=== PATIENT | female | born 1940 | race American Indian/Alaskan Native ===

== ENCOUNTER 2017-09-25 13:31 | Inpatient (IN) | payer MEDICARE, MEDICAID, OTHER ==
[2017-09-25] MEDS ORDERED: Magnesium Hydroxide 400 MG/5 ML Susp 30 ML Cup PO PRN (15:15)
[2017-09-25] MEDS ORDERED: Morphine 2 MG/ML Syringe IVPUSH PRN (15:15)
[2017-09-25] MEDS ORDERED: Polyethylene Glycol 3350 Powder 17 GM Packet PO PRN (15:15)
[2017-09-25] MEDS ORDERED: Ondansetron 4 MG Tab.DIS PO PRN (15:18)
[2017-09-25] MEDS ORDERED: Acetaminophen/oxyCODONE 325-5 MG Tab PO PRN (15:20)
[2017-09-25] MEDS: ceFAZolin 2 GM in Premix Bag 1 BAG IV SCH ×2 (16:18→22:24)
[2017-09-25] MEDS: Rifampin 150 MG Cap PO SCH (16:19)
[2017-09-25] MEDS: Sodium Chloride 0.9% 10 ML Syringe FLUSH PRN ×3 (16:19→22:59)
[2017-09-25] MEDS: Acetaminophen 325 MG Tab PO PRN (16:23)
--- NOTE | 2017-09-25 17:11 | HP ---
CHIEF COMPLAINT: Infected right hip arthroplasty, status post surgery, requiring long-term IV antibiotics for almost 6 weeks, requiring admission to Swing Bed. HISTORY OF PRESENTING ILLNESS: Ms. Miri Mercado is a 76-year-old female with medical history significant for hypertension and osteoarthritis. She had the left hip arthroplasty in the past and then she had the right total hip arthroplasty on 09/04/2017. She was admitted to [facility] on 09/19/2017 with right septic total hip arthroplasty and underwent excisional irrigation and debridement of the right hip with revision of the right total hip head and poly exchange on 09/20/2017. The patient had Staph aureus growing in the culture which is methicillin-susceptible. The patient was evaluated by Infectious Disease team at [facility] and has suggested for cefazolin for a total of 6 weeks of IV antibiotics which will be up until 11/01/2017, requiring admission to Swing Bed. At this time, the patient complains of pain to the right hip site. She grades the pain as 3-4/10 in intensity, which is dull in nature, aggravated on ambulation, relieved with rest and pain medication, nonradiating type of pain, not associated with any nausea or vomiting. Denies any chest pain. No shortness of breath. No abdominal pain. The patient denied any history of chest pains on exertion. No history of dyspnea on exertion. No history of orthopnea or paroxysmal nocturnal dyspnea. The patient denied any history of hematemesis, hematochezia, or melenic stools. Normal bowel and bladder habits, otherwise. REVIEW OF SYSTEMS: A complete review of systems including skin, ear, nose, and throat, cardiovascular system, respiratory system, gastrointestinal system, genitourinary system, hematology, oncology, neurology, constitutional were all evaluated and were negative except for the above-said notes. PAST MEDICAL HISTORY: Significant for: 1. Hypertension. 2. Osteoarthritis. 3. Septic right total hip arthroplasty. PAST SURGICAL HISTORY: Significant for: 1. Left total hip arthroplasty. 2. Laparoscopic cholecystectomy. 3. Recent right total hip arthroplasty, which got complicated with infection, requiring excisional irrigation and debridement of the right hip with revision of the total right hip head with poly exchange on 09/20/2017. FAMILY HISTORY: Unknown by the patient. SOCIAL HISTORY: The patient denied any history of smoking tobacco. No history of alcohol intake. ALLERGIES: The patient has intolerance to lisinopril, which causes her to cough. MEDICATIONS: Home medications to include: 1. Tylenol 650 daily as needed for pain. 2. Senokot 2 tablet daily. 3. Rifampin 300 mg twice a day. 4. Potassium chloride 20 mEq daily. 5. Oxycodone 5 mg every 4 hours. 6. Zofran as needed. 7. Multivitamin 1 tablet daily. 8. Cozaar 50 mg daily. 9. Ferrous sulfate 1 tablet oral daily. 10.Lipitor 10 mg at bedtime. 11.Aspirin 325 mg twice a day. 12.Norvasc 10 mg daily. PHYSICAL EXAMINATION: Vital Signs: Temperature of 98.1, pulse of 118, blood pressure 129/82, respiratory rate of 20, saturating at 93% on room air. General Appearance: The patient is well oriented to time, place, and person. Follows commands spontaneously. Cardiovascular System: S1 and S2 heard with normal intensity. No gallops. Respiratory System: Clear to auscultation bilaterally. No wheeze. No crepitations. Abdomen: Soft. Bowel sounds positive. Nontender. No rigidity. Extremities: Wound VAC noted to the right hip. No swelling. No erythema noted. Well healing wounds noted. No edema to the lower extremities. Neurologic: No gross focal neurological deficits. LABORATORY DATA: Labs as obtained from [facility]: Sodium 137, potassium 4.4, chloride 104, bicarb 27, BUN 5, creatinine 0.6, magnesium 1.9. WBC 6.3, hemoglobin 8.3, hematocrit 26.8, platelet count 408. ASSESSMENT: 1. 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 2. Status post right total hip arthroplasty on 09/04/2017, complicated with infection, requiring excisional irrigation and debridement of the right hip with revision of her prior right total hip with poly exchange on 09/20/2017. 3. Status post wound VAC placement. 4. Hypertension. 5. Osteoarthritis. PLAN: 1. 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 Continue the same. The patient will need IV cefazolin and oral rifampin for a total duration of 6 weeks as recommended by the Infectious Disease team, which will be up until 11/01/2017. She will be following with Infectious Disease weekly for further recommendation on IV antibiotics. We will continue the wound VAC. Recommendation is to leave the wound VAC for next one week until she has an upcoming appointment. We will closely follow. 2. Hypertension: She is noted to be on Cozaar. Continue the same. Try to avoid any hypotensive episodes. 3. DVT prophylaxis: Orthopedic is recommended for aspirin for DVT prophylaxis. Not had any heparin or Lovenox secondary to complications with bleeding and recurrent infections. We will continue with the aspirin for now, defer DVT prophylaxis. We will also encourage the patient to ambulate and have her on DIO hose as a DVT prophylaxis. 4. Code status: The patient wants to be full code. 5. Reviewed the labs and medications. Reviewed the charts obtained from [facility]. [facility] /[id number]
[2017-09-25] MEDS: oxyCODONE 5 MG Tab PO SCH ×2 (18:17→22:25)
[2017-09-25] MEDS: Aspirin 325 MG Tab.EC PO SCH (20:11)
[2017-09-25] MEDS: Potassium Chloride 10 MEQ Tab.ER PO SCH (20:11)
[2017-09-25] MEDS: Clotrimazole 1% Crm 30 GM Tube TOP SCH (20:11)
[2017-09-25] MEDS: atorvaSTATin 10 MG Tab PO SCH (20:11)
[2017-09-26] MEDS: oxyCODONE 5 MG Tab PO SCH ×6 (01:54→21:36)
[2017-09-26] MEDS: Sodium Chloride 0.9% 10 ML Syringe FLUSH PRN ×3 (05:43→21:36)
[2017-09-26] MEDS: ceFAZolin 2 GM in Premix Bag 1 BAG IV SCH ×3 (05:52→21:36)
[2017-09-26] MEDS: Rifampin 150 MG Cap PO SCH ×2 (05:53→16:48)
[2017-09-26] MEDS: Aspirin 325 MG Tab.EC PO SCH ×2 (08:55→21:36)
[2017-09-26] MEDS: Potassium Chloride 10 MEQ Tab.ER PO SCH ×2 (08:55→21:36)
[2017-09-26] MEDS: Ferrous Sulfate 325 MG Tab PO SCH (08:56)
[2017-09-26] MEDS: Clotrimazole 1% Crm 30 GM Tube TOP SCH ×2 (08:56→21:37)
[2017-09-26] MEDS: Losartan 50 MG Tab PO SCH (08:56)
[2017-09-26] MEDS: amLODIPine 5 MG Tab PO SCH (08:56)
[2017-09-26] MEDS: Multivitamins, Therapeutic with Minerals Tab PO SCH (08:56)
[2017-09-26] MEDS ORDERED: FERROUS SULFATE PO SCH (09:00)
[2017-09-26] MEDS: atorvaSTATin 10 MG Tab PO SCH (21:36)
[2017-09-27] MEDS: oxyCODONE 5 MG Tab PO SCH ×6 (01:49→22:10)
[2017-09-27] MEDS: ceFAZolin 2 GM in Premix Bag 1 BAG IV SCH ×3 (05:56→22:12)
[2017-09-27] MEDS: Sodium Chloride 0.9% 10 ML Syringe FLUSH PRN ×2 (05:57→13:43)
[2017-09-27] MEDS: Rifampin 150 MG Cap PO SCH ×2 (06:01→18:02)
[2017-09-27] MEDS: Potassium Chloride 10 MEQ Tab.ER PO SCH ×2 (08:25→20:36)
[2017-09-27] MEDS: Multivitamins, Therapeutic with Minerals Tab PO SCH (08:26)
[2017-09-27] MEDS: Ferrous Sulfate 325 MG Tab PO SCH (08:26)
[2017-09-27] MEDS: Losartan 50 MG Tab PO SCH (08:41)
[2017-09-27] MEDS: Aspirin 325 MG Tab.EC PO SCH ×2 (08:41→20:36)
[2017-09-27] MEDS: amLODIPine 5 MG Tab PO SCH (08:42)
[2017-09-27] MEDS: Clotrimazole 1% Crm 30 GM Tube TOP SCH ×2 (08:42→20:40)
[2017-09-27] MEDS: atorvaSTATin 10 MG Tab PO SCH (20:37)
[2017-09-28] MEDS: oxyCODONE 5 MG Tab PO SCH ×6 (02:01→22:03)
[2017-09-28] MEDS: ceFAZolin 2 GM in Premix Bag 1 BAG IV SCH ×3 (05:58→22:05)
[2017-09-28] MEDS: Rifampin 150 MG Cap PO SCH ×2 (06:04→17:55)
[2017-09-28] MEDS: Ferrous Sulfate 325 MG Tab PO SCH (09:59)
[2017-09-28] MEDS: Aspirin 325 MG Tab.EC PO SCH ×2 (09:59→20:23)
[2017-09-28] MEDS: Potassium Chloride 10 MEQ Tab.ER PO SCH ×2 (09:59→20:23)
[2017-09-28] MEDS: amLODIPine 5 MG Tab PO SCH (09:59)
[2017-09-28] MEDS: Multivitamins, Therapeutic with Minerals Tab PO SCH (09:59)
[2017-09-28] MEDS: Losartan 50 MG Tab PO SCH (09:59)
[2017-09-28] MEDS: Clotrimazole 1% Crm 30 GM Tube TOP SCH ×2 (10:00→20:24)
[2017-09-28] MEDS: atorvaSTATin 10 MG Tab PO SCH (20:24)
[2017-09-29] MEDS: oxyCODONE 5 MG Tab PO SCH ×6 (02:02→21:53)
[2017-09-29] MEDS: Rifampin 150 MG Cap PO SCH ×2 (05:54→18:05)
[2017-09-29] MEDS: ceFAZolin 2 GM in Premix Bag 1 BAG IV SCH ×3 (05:55→21:54)
[2017-09-29] MEDS: Potassium Chloride 10 MEQ Tab.ER PO SCH ×2 (09:38→20:20)
[2017-09-29] MEDS: Multivitamins, Therapeutic with Minerals Tab PO SCH (09:38)
[2017-09-29] MEDS: amLODIPine 5 MG Tab PO SCH (09:38)
[2017-09-29] MEDS: Ferrous Sulfate 325 MG Tab PO SCH (09:39)
[2017-09-29] MEDS: Losartan 50 MG Tab PO SCH (09:39)
[2017-09-29] MEDS: Aspirin 325 MG Tab.EC PO SCH ×2 (09:39→20:20)
[2017-09-29] MEDS: Clotrimazole 1% Crm 30 GM Tube TOP SCH ×2 (09:39→20:21)
[2017-09-29] MEDS: atorvaSTATin 10 MG Tab PO SCH (20:20)
[2017-09-30] MEDS: oxyCODONE 5 MG Tab PO SCH ×6 (02:00→21:49)
[2017-09-30] MEDS: Rifampin 150 MG Cap PO SCH ×2 (05:57→16:15)
[2017-09-30] MEDS: ceFAZolin 2 GM in Premix Bag 1 BAG IV SCH ×3 (05:59→22:00)
[2017-09-30] MEDS: Losartan 50 MG Tab PO SCH (09:00)
[2017-09-30] MEDS: Potassium Chloride 10 MEQ Tab.ER PO SCH ×2 (09:12→21:48)
[2017-09-30] MEDS: amLODIPine 5 MG Tab PO SCH (09:13)
[2017-09-30] MEDS: Ferrous Sulfate 325 MG Tab PO SCH (09:13)
[2017-09-30] MEDS: Multivitamins, Therapeutic with Minerals Tab PO SCH (09:14)
[2017-09-30] MEDS: Aspirin 325 MG Tab.EC PO SCH ×2 (09:14→21:47)
[2017-09-30] MEDS: Clotrimazole 1% Crm 30 GM Tube TOP SCH ×2 (09:16→21:49)
[2017-09-30] MEDS: atorvaSTATin 10 MG Tab PO SCH (21:47)
[2017-09-30] MEDS: Sodium Chloride 0.9% 10 ML Syringe FLUSH PRN ×2 (21:57→22:29)
[2017-10-01] MEDS: oxyCODONE 5 MG Tab PO SCH ×6 (02:10→22:29)
[2017-10-01] MEDS: Sodium Chloride 0.9% 10 ML Syringe FLUSH PRN ×2 (05:19→06:07)
[2017-10-01] MEDS: ceFAZolin 2 GM in Premix Bag 1 BAG IV SCH ×3 (05:21→22:29)
[2017-10-01] MEDS: Rifampin 150 MG Cap PO SCH ×2 (05:22→17:43)
[2017-10-01] MEDS: amLODIPine 5 MG Tab PO SCH (07:59)
[2017-10-01] MEDS: Aspirin 325 MG Tab.EC PO SCH ×2 (07:59→21:05)
[2017-10-01] MEDS: Ferrous Sulfate 325 MG Tab PO SCH (07:59)
[2017-10-01] MEDS: Multivitamins, Therapeutic with Minerals Tab PO SCH (08:00)
[2017-10-01] MEDS: Potassium Chloride 10 MEQ Tab.ER PO SCH ×2 (08:00→21:05)
[2017-10-01] MEDS: Losartan 50 MG Tab PO SCH (08:00)
[2017-10-01] MEDS: Clotrimazole 1% Crm 30 GM Tube TOP SCH ×2 (08:01→21:08)
--- NOTE | 2017-10-01 10:33 | PCM.PN ---
- General Info Date of Service: 10/01/17 Subjective Update: Patient is 76 y/o F with PMH of HTN, OA, s/p left RADHA in the past. She uderwent right RADHA on 09/04. She was admitted to [facility] on 09/19 with right septic total hip arthropalsty and underwent excisional irrigation and debridement. Cx positive for MSSA. She was admitted to [facility] bed to continue IV cefazolin. Plan is to complete 6 week course on 11/01. Today patient reports no complaints. Reports doing well. Functional Status: Reports: Pain Controlled - Review of Systems General: Reports: No Symptoms HEENT: Reports: No Symptoms Pulmonary: Reports: No Symptoms Cardiovascular: Reports: No Symptoms Gastrointestinal: Reports: No Symptoms Genitourinary: Reports: No Symptoms Musculoskeletal: Reports: No Symptoms Skin: Reports: No Symptoms Neurological: Reports: No Symptoms Psychiatric: Reports: No Symptoms - Patient Data Vitals - Most Recent: Last Vital Signs Temp 98.0 F 10/01/17 07:32 Pulse 104 H 10/01/17 07:32 Resp 20 10/01/17 07:32 BP 111/68 10/01/17 08:00 Pulse Ox 94 L 10/01/17 07:32 Weight - Most Recent: 205 lb I&O - Last 24 Hours: Intake & Output 09/30/17 10/01/17 10/01/17 22:59 06:59 14:59 Intake Total 459 665 325 Balance 459 665 325 Med Orders - Current: Current Medications Acetaminophen (Tylenol) 650 mg PO DAILY PRN PRN Reason: Pain Last Admin: 09/25/17 16:23 Dose: 650 mg Amlodipine Besylate (Norvasc) 10 mg PO DAILY [facility] Last Admin: 10/01/17 07:59 Dose: 10 mg Aspirin (Ecotrin) 325 mg PO BID [facility] Last Admin: 10/01/17 07:59 Dose: 325 mg Atorvastatin Calcium (Lipitor) 10 mg PO BEDTIME [facility] Last Admin: 09/30/17 21:47 Dose: 10 mg Clotrimazole (Lotrimin Af 1% Crm) 0 gm TOP BID [facility] Last Admin: 10/01/17 08:01 Dose: Not Given Ferrous Sulfate (Ferrous Sulfate) 325 mg PO DAILY [facility] Last Admin: 10/01/17 07:59 Dose: 325 mg Cefazolin Sodium/Dextrose 2 gm (/ Premix) 50 mls @ 100 mls/hr IV Q8HR [facility] Last Infusion: 10/01/17 06:06 Dose: Infused Losartan Potassium (Cozaar) 50 mg PO DAILY [facility] Last Admin: 10/01/17 08:00 Dose: 50 mg Magnesium Hydroxide (Milk Of Magnesia) 30 ml PO Q12H PRN PRN Reason: Constipation Morphine Sulfate (Morphine) 2 mg IVPUSH Q2H PRN PRN Reason: Pain (severe 7-10) Multivitamins/Minerals (Vitamins And Minerals) 1 tab PO DAILY [facility] Last Admin: 10/01/17 08:00 Dose: 1 tab Ondansetron HCl (Zofran Odt) 8 mg PO Q8HR PRN PRN Reason: Nausea Oxycodone HCl (Oxycodone) 5 mg PO Q4HR [facility] Last Admin: 10/01/17 05:23 Dose: 5 mg Oxycodone/Acetaminophen (Percocet 325-5 Mg) 1 tab PO Q4H PRN PRN Reason: Pain (moderate 4-6) Polyethylene Glycol (Miralax) 17 gm PO DAILY PRN PRN Reason: Constipation Potassium Chloride (Klor-Con 10) 20 meq PO BID [facility] Last Admin: 10/01/17 08:00 Dose: 20 meq [facility] Last Admin: 10/01/17 05:22 Dose: 300 mg Senna/Docusate Sodium (Senna Plus) 2 tab PO DAILY [facility] Last Admin: 10/01/17 07:59 Dose: 2 tab Sodium Chloride (Saline Flush) 10 ml FLUSH ASDIRECTED PRN PRN Reason: IV Use Last Admin: 10/01/17 06:07 Dose: 10 ml Temazepam (Restoril) 15 mg PO BEDTIME PRN PRN Reason: Sleep Discontinued Medications Non-Formulary Medication (Ferrous Sulfate) 1 tab PO DAILY [facility] - Exam General: Alert, Oriented HEENT: Pupils Equal, Pupils Reactive, EOMI, Mucous Membr. Moist/[place] Neck: Supple Lungs: Clear to Auscultation, Normal Respiratory Effort Cardiovascular: Regular Rate, Regular Rhythm GI/Abdominal Exam: Normal Bowel Sounds, Soft, Non-Tender, No Organomegaly, No Distention, No Abnormal Bruit, No Mass, Pelvis Stable (Female) Exam: Normal External Exam, Normal Speculum Exam, Normal Bimanual Exam Back Exam: Normal Inspection, Full Range of Motion Extremities: Normal Inspection, Normal Range of Motion, Non-Tender, No Pedal Edema, Normal Capillary Refill Skin: Warm, Dry, Intact Wound/Incisions: Healing Well Neurological: No New Focal Deficit Psy/Mental Status: Alert, Normal Affect, Normal Mood - Problem List Review Problem List Initiated/Reviewed/Updated: Yes - Plan Plan:: Septic Right total hip arthropalsty s/p excisional irrigation and debridement -Cx positive for MSSA -continue IV cefazolin. Plan is to complete 6 week course on 11/01 Osteoarthritis -Tyleron prn HTN -BP with limits -continue current care Full code
[2017-10-01] MEDS: atorvaSTATin 10 MG Tab PO SCH (21:05)
[2017-10-02] MEDS: oxyCODONE 5 MG Tab PO SCH ×4 (02:01→21:39)
[2017-10-02] MEDS: ceFAZolin 2 GM in Premix Bag 1 BAG IV SCH ×3 (05:57→21:40)
[2017-10-02] MEDS: Rifampin 150 MG Cap PO SCH ×2 (05:58→17:12)
[2017-10-02 06:57] LABS: ANION GAP 12.4; CHLORIDE,CL 100 mmol/L (101-111); SODIUM,NA 134 mmol/L (135-145)
[2017-10-02] MEDS: Losartan 50 MG Tab PO SCH (09:30)
[2017-10-02] MEDS: Potassium Chloride 10 MEQ Tab.ER PO SCH ×2 (10:27→21:37)
[2017-10-02] MEDS: Multivitamins, Therapeutic with Minerals Tab PO SCH (10:27)
[2017-10-02] MEDS: Ferrous Sulfate 325 MG Tab PO SCH (10:27)
[2017-10-02] MEDS: Aspirin 325 MG Tab.EC PO SCH ×2 (10:28→21:38)
[2017-10-02] MEDS: amLODIPine 5 MG Tab PO SCH (10:29)
[2017-10-02] MEDS: Clotrimazole 1% Crm 30 GM Tube TOP SCH ×2 (10:31→21:38)
[2017-10-02] MEDS ORDERED: Acetaminophen/oxyCODONE 325-5 MG Tab PO PRN (10:32)
[2017-10-02] MEDS ORDERED: oxyCODONE 5 MG Tab PO PRN (10:32)
[2017-10-02] MEDS: Sodium Chloride 0.9% 10 ML Syringe FLUSH PRN (14:54)
[2017-10-02] MEDS: atorvaSTATin 10 MG Tab PO SCH (21:38)
[2017-10-03] MEDS: Rifampin 150 MG Cap PO SCH ×2 (05:51→16:59)
[2017-10-03] MEDS: ceFAZolin 2 GM in Premix Bag 1 BAG IV SCH ×3 (05:51→21:24)
[2017-10-03] MEDS: amLODIPine 5 MG Tab PO SCH (08:32)
[2017-10-03] MEDS: Aspirin 325 MG Tab.EC PO SCH ×2 (08:33→21:21)
[2017-10-03] MEDS: Ferrous Sulfate 325 MG Tab PO SCH (08:33)
[2017-10-03] MEDS: Losartan 50 MG Tab PO SCH (08:34)
[2017-10-03] MEDS: Multivitamins, Therapeutic with Minerals Tab PO SCH (08:34)
[2017-10-03] MEDS: Potassium Chloride 10 MEQ Tab.ER PO SCH ×2 (08:34→21:21)
[2017-10-03] MEDS: oxyCODONE 5 MG Tab PO SCH ×2 (08:34→21:21)
[2017-10-03] MEDS: Clotrimazole 1% Crm 30 GM Tube TOP SCH ×2 (08:35→21:24)
[2017-10-03] MEDS: Acetaminophen 325 MG Tab PO PRN (09:42)
[2017-10-03] MEDS: Sodium Chloride 0.9% 10 ML Syringe FLUSH PRN (13:49)
[2017-10-03] MEDS: atorvaSTATin 10 MG Tab PO SCH (21:21)
[2017-10-03] MEDS: Menthol/Methyl Salicylate 85 GM Tube TOP PRN (21:23)
[2017-10-04] MEDS: ceFAZolin 2 GM in Premix Bag 1 BAG IV SCH ×3 (05:37→22:09)
[2017-10-04] MEDS: Rifampin 150 MG Cap PO SCH ×2 (05:37→16:46)
[2017-10-04] MEDS: Potassium Chloride 10 MEQ Tab.ER PO SCH ×2 (09:04→21:54)
[2017-10-04] MEDS: amLODIPine 5 MG Tab PO SCH (09:05)
[2017-10-04] MEDS: Losartan 50 MG Tab PO SCH (09:05)
[2017-10-04] MEDS: Multivitamins, Therapeutic with Minerals Tab PO SCH (09:05)
[2017-10-04] MEDS: Aspirin 325 MG Tab.EC PO SCH ×2 (09:05→21:54)
[2017-10-04] MEDS: Ferrous Sulfate 325 MG Tab PO SCH (09:05)
[2017-10-04] MEDS: oxyCODONE 5 MG Tab PO SCH ×2 (09:06→21:54)
[2017-10-04] MEDS: Clotrimazole 1% Crm 30 GM Tube TOP SCH ×2 (09:09→21:55)
[2017-10-04] MEDS: Menthol/Methyl Salicylate 85 GM Tube TOP PRN (09:17)
[2017-10-04 12:12] LABS: ANION GAP 13.1; CHLORIDE,CL 97 mmol/L (101-111); SODIUM,NA 132 mmol/L (135-145)
--- NOTE | 2017-10-04 12:14 | PN ---
DATE: 10/04/2017 SUBJECTIVE: Mrs. Miri Mercado is a 76-year-old female with medical history significant for hypertension and osteoarthritis, had complications with the left hip arthroplasty and got infected; and it was noted to have septic total hip arthroplasty and underwent excisional irrigation and debridement of the right hip with revision of the right total hip and poly exchange on 09/20/2017. The patient was noted to have Staph aureus growing in the cultures which is methicillin-susceptible, and the patient is currently on IV antibiotic with cefazolin for a total of 6 weeks. For the last 24 hours, the patient noted to have excessive drainage from the surgical site which is serosanguineous and also a little pustular. The patient complains of mild pain at the surgical site which is 2 to 3/10 in intensity, which is tingling in nature, nonradiating type of pain, not associated with any nausea or vomiting. Denies any chest pain. No shortness of breath. No abdominal pain. No nausea. No vomiting. No diarrhea. The patient remains afebrile at this time. REVIEW OF SYSTEMS: Cardiovascular, respiratory, gastrointestinal, neurology, constitutional were all evaluated. PHYSICAL EXAMINATION: Vital Signs: Temperature of 98.5, pulse of 100, blood pressure of 114/73, respiratory rate of 16, and saturating at 93%. General Appearance: The patient is well oriented to time, place, and person. Follows commands spontaneously. Cardiovascular System: S1 and S2 heard with normal intensity. No gallops. Respiratory System: Clear to auscultation bilaterally. No wheeze. No crepitations. Abdomen: Soft. Bowel sounds positive. Nontender. No rigidity. Extremities: No edema in bilateral lower extremities. Pelvic: Right hip surgical wound noted. Mild serosanguineous discharge noted from the surgical wound site. Mild open wound noted on the lower surgical scar. No erythema noted. No point tenderness noted at the surgical site. No swelling noted at the surgical site. MEDICATIONS: Reviewed. Continue with: 1. Tylenol 650 daily as needed. 2. Norvasc 10 mg daily. 3. Aspirin 325 mg twice a day. 4. Lipitor 10 mg at bedtime. 5. Cefazolin IV q.8 hourly. 6. Ferrous sulfate 325 mg daily. 7. Cozaar 50 mg daily. 8. Milk of magnesia 30 mL q.12 hourly. 9. Morphine 2 mg IV q.2 hours as needed. 10.Zofran 8 mg every 8 hours as needed for nausea. 11.Oxycodone 5 mg q.12 hourly. 12.Percocet 5/325 mg every 6 hours as needed. 13.Potassium chloride 20 mEq twice a day. 14.Rifampin 300 mg twice a day. 15.Restoril 15 mg at bedtime as needed for sleep. LABORATORY DATA: No new labs were ordered, so we will order for a CBC and a BMP for now. ASSESSMENT: 1. 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 2. Status post right total hip arthroplasty on 09/04/2017, complicated with infection, requiring excisional irrigation and debridement of the right hip with revision of her right total hip with a poly exchange on 09/20/2017. 3. Hypertension. 4. Osteoarthritis. PLAN: 1. Septic arthritis. The patient is currently on antibiotic with IV cefazolin and oral rifampin. The patient is noted to have serosanguineous discharge from the joint site, but the wound looks healthy without any erythema or swelling. Little pustular drainage also noted. The patient denies any acute pain for now. We will closely follow the patient. The patient was evaluated by Dr. Ramon last week. She has an appointment coming up on Saturday. We will closely monitor the wound. If there is any evidence of cellulitis or any worsening of the symptoms, then the patient might benefit from transferring back to [facility] in [place]. We will continue with antibiotic for now. We will recheck a CBC, ESR, and CRP at this time. We will closely follow. 2. Hypertension. The patient's blood pressure seems to be in acceptable range. Continue with Cozaar and lisinopril. 3. DVT prophylaxis. The patient is currently on aspirin twice a day for DVT prophylaxis recommended by the orthopedic team. Continue the same. [facility] /[id number]
[2017-10-04] MEDS: Sodium Chloride 0.9% 10 ML Syringe FLUSH PRN ×3 (13:55→22:47)
[2017-10-04] MEDS: atorvaSTATin 10 MG Tab PO SCH (21:54)
[2017-10-05] MEDS: Sodium Chloride 0.9% 10 ML Syringe FLUSH PRN ×4 (05:54→22:00)
[2017-10-05] MEDS: ceFAZolin 2 GM in Premix Bag 1 BAG IV SCH ×3 (05:56→22:03)
[2017-10-05] MEDS: Rifampin 150 MG Cap PO SCH ×2 (06:03→16:56)
[2017-10-05] MEDS: amLODIPine 5 MG Tab PO SCH (08:48)
[2017-10-05] MEDS: Aspirin 325 MG Tab.EC PO SCH ×2 (08:48→20:14)
[2017-10-05] MEDS: Potassium Chloride 10 MEQ Tab.ER PO SCH ×2 (08:56→20:13)
[2017-10-05] MEDS: Losartan 50 MG Tab PO SCH (08:56)
[2017-10-05] MEDS: Multivitamins, Therapeutic with Minerals Tab PO SCH (08:56)
[2017-10-05] MEDS: oxyCODONE 5 MG Tab PO SCH ×2 (08:57→20:14)
[2017-10-05] MEDS: Ferrous Sulfate 325 MG Tab PO SCH (08:57)
[2017-10-05] MEDS: Clotrimazole 1% Crm 30 GM Tube TOP SCH ×2 (10:21→20:19)
[2017-10-05] MEDS: Menthol/Methyl Salicylate 85 GM Tube TOP PRN (10:22)
[2017-10-05] MEDS: atorvaSTATin 10 MG Tab PO SCH (20:14)
[2017-10-06] MEDS: Sodium Chloride 0.9% 10 ML Syringe FLUSH PRN ×4 (05:59→22:10)
[2017-10-06] MEDS: ceFAZolin 2 GM in Premix Bag 1 BAG IV SCH ×3 (06:02→21:31)
[2017-10-06] MEDS: Rifampin 150 MG Cap PO SCH ×2 (06:03→16:38)
[2017-10-06] MEDS: Multivitamins, Therapeutic with Minerals Tab PO SCH (09:03)
[2017-10-06] MEDS: Aspirin 325 MG Tab.EC PO SCH ×2 (09:03→20:13)
[2017-10-06] MEDS: Losartan 50 MG Tab PO SCH (09:03)
[2017-10-06] MEDS: Potassium Chloride 10 MEQ Tab.ER PO SCH ×2 (09:03→20:13)
[2017-10-06] MEDS: Ferrous Sulfate 325 MG Tab PO SCH (09:03)
[2017-10-06] MEDS: oxyCODONE 5 MG Tab PO SCH ×2 (09:04→20:14)
[2017-10-06] MEDS: amLODIPine 5 MG Tab PO SCH (09:04)
[2017-10-06] MEDS: Clotrimazole 1% Crm 30 GM Tube TOP SCH ×2 (09:06→21:34)
[2017-10-06] MEDS: Menthol/Methyl Salicylate 85 GM Tube TOP PRN (09:06)
[2017-10-06] MEDS ORDERED: Iopamidol 612 MG/ML 100 ML Bottle IVPUSH ONE (15:17)
[2017-10-06] MEDS: atorvaSTATin 10 MG Tab PO SCH (20:13)
[2017-10-07] MEDS: Sodium Chloride 0.9% 10 ML Syringe FLUSH PRN ×3 (05:51→14:04)
[2017-10-07] MEDS: ceFAZolin 2 GM in Premix Bag 1 BAG IV SCH (05:54)
[2017-10-07] MEDS: Rifampin 150 MG Cap PO SCH ×2 (05:58→18:00)
[2017-10-07] MEDS: Losartan 50 MG Tab PO SCH (08:24)
[2017-10-07] MEDS: Ferrous Sulfate 325 MG Tab PO SCH (08:25)
[2017-10-07] MEDS: oxyCODONE 5 MG Tab PO SCH ×2 (08:25→21:18)
[2017-10-07] MEDS: Aspirin 325 MG Tab.EC PO SCH ×2 (08:26→21:17)
[2017-10-07] MEDS: Multivitamins, Therapeutic with Minerals Tab PO SCH (08:26)
[2017-10-07] MEDS: Potassium Chloride 10 MEQ Tab.ER PO SCH ×2 (08:26→21:17)
[2017-10-07] MEDS: amLODIPine 5 MG Tab PO SCH (08:29)
[2017-10-07] MEDS: Clotrimazole 1% Crm 30 GM Tube TOP SCH ×2 (08:30→21:19)
[2017-10-07] MEDS ORDERED: Cefepime 2 GM in Sodium Chloride 0.9% 50 ML IV SCH (12:30)
[2017-10-07] MEDS ORDERED: Cefepime 2 GM in Sodium Chloride 0.9% 100 ML IV SCH (13:14)
[2017-10-07] MEDS: Cefepime 2 GM in Sodium Chloride 0.9% 100 ML IV SCH (13:57)
[2017-10-07] MEDS: atorvaSTATin 10 MG Tab PO SCH (21:17)
[2017-10-08] MEDS: Cefepime 2 GM in Sodium Chloride 0.9% 100 ML IV SCH ×3 (01:02→18:25)
[2017-10-08] MEDS: Rifampin 150 MG Cap PO SCH ×2 (06:13→17:26)
[2017-10-08] MEDS: Losartan 50 MG Tab PO SCH (09:35)
[2017-10-08] MEDS: Multivitamins, Therapeutic with Minerals Tab PO SCH (09:35)
[2017-10-08] MEDS: amLODIPine 5 MG Tab PO SCH (09:35)
[2017-10-08] MEDS: Ferrous Sulfate 325 MG Tab PO SCH (09:36)
[2017-10-08] MEDS: Potassium Chloride 10 MEQ Tab.ER PO SCH ×2 (09:36→21:31)
[2017-10-08] MEDS: oxyCODONE 5 MG Tab PO SCH ×2 (09:36→21:32)
[2017-10-08] MEDS: Aspirin 325 MG Tab.EC PO SCH ×2 (09:36→21:31)
[2017-10-08] MEDS: Clotrimazole 1% Crm 30 GM Tube TOP SCH ×2 (09:37→21:34)
[2017-10-08] MEDS: Sodium Chloride 0.9% 10 ML Syringe FLUSH PRN (18:27)
[2017-10-08] MEDS: atorvaSTATin 10 MG Tab PO SCH (21:32)
[2017-10-09] MEDS: Cefepime 2 GM in Sodium Chloride 0.9% 100 ML IV SCH ×3 (00:05→17:10)
[2017-10-09] MEDS: Rifampin 150 MG Cap PO SCH ×2 (06:12→17:10)
[2017-10-09 06:52] LABS: ANION GAP 11.8; CHLORIDE,CL 103 mmol/L (101-111); SODIUM,NA 136 mmol/L (135-145)
[2017-10-09] MEDS: Aspirin 325 MG Tab.EC PO SCH ×2 (09:14→20:33)
[2017-10-09] MEDS: Ferrous Sulfate 325 MG Tab PO SCH (09:14)
[2017-10-09] MEDS: Losartan 50 MG Tab PO SCH (09:14)
[2017-10-09] MEDS: Potassium Chloride 10 MEQ Tab.ER PO SCH ×2 (09:14→20:33)
[2017-10-09] MEDS: Multivitamins, Therapeutic with Minerals Tab PO SCH (09:15)
[2017-10-09] MEDS: oxyCODONE 5 MG Tab PO SCH ×2 (09:15→20:34)
[2017-10-09] MEDS: amLODIPine 5 MG Tab PO SCH (09:15)
[2017-10-09] MEDS: Clotrimazole 1% Crm 30 GM Tube TOP SCH ×2 (09:16→20:36)
--- NOTE | 2017-10-09 12:46 | PN ---
DATE: 10/09/2017 SUBJECTIVE: Mrs. Miri Mercado is a 76-year-old female with a medical history significant for hypertension and osteoarthritis. She had her left hip arthroplasty on 09/04/2017 and had complications with sepsis involving the arthroplasty joint on the right hip. She was admitted to [facility] on 09/19/2017 and underwent excisional irrigation and debridement of the right hip with revision of the right total hip head and poly exchange on 09/20/2017. The patient was noted to have Staph aureus growing in the culture which was methicillin-susceptible. The patient was admitted to [facility] for continued antibiotics up until 11/01/2017 for a total of 6 weeks, but during this admission, the patient continued to have copious secretion from the wound site. Wound culture showed evidence of Pseudomonas. The patient was evaluated by Infectious Disease team and has changed the IV antibiotic cefepime and discontinued the cefazolin. For the last 24 hours, the patient continues to have mild discomfort at the wound site. She denies any chest pain. No shortness of breath. No abdominal pain. No nausea. No vomiting. No diarrhea. She continues to have mild secretion from the wound site on the right hip. REVIEW OF SYSTEMS: Cardiovascular, respiratory, gastrointestinal, neurology, constitutional were all evaluated. PHYSICAL EXAMINATION: Vital Signs: Temperature of 98.6, pulse of 117, blood pressure of 120/67, respiratory rate of 16, and saturating at 100%. General Appearance: The patient is well oriented to time, place, and person. Follows commands spontaneously. Cardiovascular System: S1 and S2 heard with normal intensity. No gallops. Respiratory System: Clear to auscultation bilaterally. No wheeze. No crepitations. Abdomen: Soft. Bowel sounds positive. Nontender. No rigidity. Extremities: No edema in bilateral lower extremities. MEDICATIONS: Medications reviewed. Continue with: 1. Tylenol 650 every 4 hours as needed for pain. 2. Norvasc 10 mg daily. 3. Aspirin 325 mg twice a day. 4. Lipitor 10 mg daily. 5. Ferrous sulfate 325 mg daily. 6. Cozaar 50 mg daily. 7. Morphine 2 mg IV q.2 hours as needed for pain. 8. Zofran 8 mg every 8 hours as needed for nausea and vomiting. 9. Oxycodone 5 mg q.12 hourly. 10.Percocet 5/325 mg every 6 hours as needed. 11.Potassium chloride 20 mEq twice a day. 12.Rifampin 300 mg twice a day. 13.Temazepam 15 mg at bedtime as needed for sleep. LABORATORY DATA: Labs reviewed. 1. WBC 5.8, hemoglobin 9.1, hematocrit 30.7, platelet count 396. 2. Sodium 136, potassium 4.8, chloride 103, bicarb 26, BUN 6, creatinine 0.5, glucose 109. ASSESSMENT: 1. Septic right total hip arthroplasty, requiring poly exchange. 2. Status post right total hip arthroplasty on 09/04/2017 complicated with infection, requiring excisional irrigation and debridement of the right hip with revision of her prior right total hip with poly exchange on 09/20/2017. 3. Wound culture positive for Pseudomonas, sensitive to cefepime. 4. Hypertension. 5. Osteoarthritis. PLAN: 1. Septic arthritis. The patient is admitted to the Swing Bed for continued IV antibiotics. In between, the patient's wound culture is positive for Pseudomonas. She continues to have drainage from the wound site. The patient was evaluated by Infectious Disease team as well as Orthopedic team yesterday and has recommended for continued IV antibiotics for now and reassess the wound. The patient does not have any leukocytosis at this time. She remains afebrile. We will continue with wound cares. Continue the IV antibiotic as recommended by the ID and Orthopedic Services. Closely follow. Continue with physical therapy and occupational therapy. 2. DVT prophylaxis. The patient is on aspirin 325 mg twice a day as recommended by the Orthopedic Services. 3. Hypertension. She is currently on Norvasc 10 mg daily. Continue the same. Continue with Cozaar. 4. She is on appropriate pain medications. Continue the same. [facility] /[id number]
[2017-10-09] MEDS: atorvaSTATin 10 MG Tab PO SCH (20:33)
[2017-10-10] MEDS: Sodium Chloride 0.9% 10 ML Syringe FLUSH PRN ×3 (00:01→16:02)
[2017-10-10] MEDS: Cefepime 2 GM in Sodium Chloride 0.9% 100 ML IV SCH ×3 (00:01→16:03)
[2017-10-10] MEDS: Rifampin 150 MG Cap PO SCH ×2 (05:35→16:34)
[2017-10-10] MEDS: amLODIPine 5 MG Tab PO SCH (08:22)
[2017-10-10] MEDS: Potassium Chloride 10 MEQ Tab.ER PO SCH ×2 (08:22→21:28)
[2017-10-10] MEDS: oxyCODONE 5 MG Tab PO SCH ×2 (08:23→21:29)
[2017-10-10] MEDS: Multivitamins, Therapeutic with Minerals Tab PO SCH (08:23)
[2017-10-10] MEDS: Aspirin 325 MG Tab.EC PO SCH ×2 (08:23→21:28)
[2017-10-10] MEDS: Ferrous Sulfate 325 MG Tab PO SCH (08:23)
[2017-10-10] MEDS: Losartan 50 MG Tab PO SCH (08:24)
[2017-10-10] MEDS: Clotrimazole 1% Crm 30 GM Tube TOP SCH ×2 (08:25→21:27)
[2017-10-10] MEDS: atorvaSTATin 10 MG Tab PO SCH (21:28)
[2017-10-11] MEDS: Cefepime 2 GM in Sodium Chloride 0.9% 100 ML IV SCH ×4 (00:07→23:47)
[2017-10-11] MEDS: Rifampin 150 MG Cap PO SCH ×2 (07:10→16:55)
[2017-10-11] MEDS: Sodium Chloride 0.9% 10 ML Syringe FLUSH PRN (08:17)
[2017-10-11] MEDS: Losartan 50 MG Tab PO SCH (08:53)
[2017-10-11] MEDS: Aspirin 325 MG Tab.EC PO SCH ×2 (08:53→20:07)
[2017-10-11] MEDS: oxyCODONE 5 MG Tab PO SCH ×2 (08:54→20:06)
[2017-10-11] MEDS: amLODIPine 5 MG Tab PO SCH (08:54)
[2017-10-11] MEDS: Multivitamins, Therapeutic with Minerals Tab PO SCH (08:54)
[2017-10-11] MEDS: Ferrous Sulfate 325 MG Tab PO SCH (08:54)
[2017-10-11] MEDS: Clotrimazole 1% Crm 30 GM Tube TOP SCH ×2 (08:56→21:06)
[2017-10-11] MEDS: Potassium Chloride 10 MEQ Tab.ER PO SCH ×2 (09:30→20:06)
[2017-10-11] MEDS: atorvaSTATin 10 MG Tab PO SCH (20:07)
[2017-10-12] MEDS: Rifampin 150 MG Cap PO SCH ×2 (05:16→16:20)
[2017-10-12] MEDS: Sodium Chloride 0.9% 10 ML Syringe FLUSH PRN ×2 (08:14→16:19)
[2017-10-12] MEDS: Cefepime 2 GM in Sodium Chloride 0.9% 100 ML IV SCH ×2 (08:14→16:19)
[2017-10-12] MEDS: Ferrous Sulfate 325 MG Tab PO SCH (08:16)
[2017-10-12] MEDS: Aspirin 325 MG Tab.EC PO SCH ×2 (08:17→20:21)
[2017-10-12] MEDS: Multivitamins, Therapeutic with Minerals Tab PO SCH (08:17)
[2017-10-12] MEDS: oxyCODONE 5 MG Tab PO SCH ×2 (08:17→20:21)
[2017-10-12] MEDS: Potassium Chloride 10 MEQ Tab.ER PO SCH ×2 (08:18→20:20)
[2017-10-12] MEDS: amLODIPine 5 MG Tab PO SCH (08:18)
[2017-10-12] MEDS: Losartan 50 MG Tab PO SCH (08:18)
[2017-10-12] MEDS: Clotrimazole 1% Crm 30 GM Tube TOP SCH ×2 (08:19→20:38)
[2017-10-12] MEDS: atorvaSTATin 10 MG Tab PO SCH (20:20)
[2017-10-13] MEDS: Cefepime 2 GM in Sodium Chloride 0.9% 100 ML IV SCH ×3 (00:39→16:15)
[2017-10-13] MEDS: Rifampin 150 MG Cap PO SCH ×2 (06:01→16:15)
[2017-10-13] MEDS: Aspirin 325 MG Tab.EC PO SCH ×2 (08:00→20:22)
[2017-10-13] MEDS: Multivitamins, Therapeutic with Minerals Tab PO SCH (08:01)
[2017-10-13] MEDS: Ferrous Sulfate 325 MG Tab PO SCH (08:01)
[2017-10-13] MEDS: Potassium Chloride 10 MEQ Tab.ER PO SCH ×2 (08:01→20:21)
[2017-10-13] MEDS: amLODIPine 5 MG Tab PO SCH (08:01)
[2017-10-13] MEDS: Losartan 50 MG Tab PO SCH (08:01)
[2017-10-13] MEDS: oxyCODONE 5 MG Tab PO SCH (08:02)
[2017-10-13] MEDS: Clotrimazole 1% Crm 30 GM Tube TOP SCH ×2 (08:06→20:22)
[2017-10-13] MEDS ORDERED: oxyCODONE 5 MG Tab PO PRN (12:10)
[2017-10-13] MEDS: atorvaSTATin 10 MG Tab PO SCH (20:22)
[2017-10-14] MEDS: Cefepime 2 GM in Sodium Chloride 0.9% 100 ML IV SCH ×3 (00:31→17:31)
[2017-10-14] MEDS: Rifampin 150 MG Cap PO SCH ×2 (05:56→15:59)
[2017-10-14] MEDS: Sodium Chloride 0.9% 10 ML Syringe FLUSH PRN ×3 (10:11→23:52)
[2017-10-14] MEDS: Aspirin 325 MG Tab.EC PO SCH ×2 (10:19→20:49)
[2017-10-14] MEDS: Potassium Chloride 10 MEQ Tab.ER PO SCH ×2 (10:19→20:49)
[2017-10-14] MEDS: Multivitamins, Therapeutic with Minerals Tab PO SCH (10:19)
[2017-10-14] MEDS: Ferrous Sulfate 325 MG Tab PO SCH (10:20)
[2017-10-14] MEDS: Losartan 50 MG Tab PO SCH (10:27)
[2017-10-14] MEDS: amLODIPine 5 MG Tab PO SCH (10:28)
[2017-10-14] MEDS: Clotrimazole 1% Crm 30 GM Tube TOP SCH ×2 (10:31→20:50)
--- NOTE | 2017-10-14 11:03 | PN ---
DATE: 10/10/2017 SUBJECTIVE: Mrs. Mercado is a 76-year-old lady who was admitted to [facility] on 09/25/2017. She underwent a total right hip arthroplasty on 09/04/2017. Unfortunately, this was complicated by infection. This required surgical excision and debridement with placement of polymer to the right hip. Wound cultures came back positive for MSSA, and she was started on Ancef. She later grew Pseudomonas, and antibiotic was switched to cefepime. The final decision on whether she will need another surgery with replacement of the hardware just remains to be determined. If the wound worsens, she will be transferred. Otherwise, she has followup with Dr. Ramon coming up. At this time, antibiotics are planned for 6 weeks until early October following Infectious Disease recommendations. Review of her clinical data shows that she has stable vital signs and has remained afebrile. She runs a slight tachycardia. This has been true since the time of admission. She is drinking adequate fluids. She is voiding and moving her bowels. She is tolerating 100% of her meals. OBJECTIVE: On exam today, she is lying comfortably in bed. I stopped in to see how she was doing. She voiced no concerns or complaints. Her vital signs were stable. She states that she is trying to maintain a positive attitude and is willing to do whatever it takes to clear this infection and hopefully avoid another surgery and go home when she is better and the infection has been treated. She voices no concerns or complaints. PLAN: No new orders were written for her. [facility] /[id number]
[2017-10-14] MEDS: atorvaSTATin 10 MG Tab PO SCH (20:49)
[2017-10-15] MEDS: Cefepime 2 GM in Sodium Chloride 0.9% 100 ML IV SCH ×4 (00:09→23:41)
[2017-10-15] MEDS: Triamcinolone Acetonide 0.1% Crm 15 GM Tube TOP PRN ×2 (00:14→21:08)
[2017-10-15] MEDS: Sodium Chloride 0.9% 10 ML Syringe FLUSH PRN ×2 (00:40→16:58)
[2017-10-15] MEDS: Rifampin 150 MG Cap PO SCH ×2 (05:56→16:22)
[2017-10-15] MEDS: amLODIPine 5 MG Tab PO SCH (08:22)
[2017-10-15] MEDS: Multivitamins, Therapeutic with Minerals Tab PO SCH (08:22)
[2017-10-15] MEDS: Aspirin 325 MG Tab.EC PO SCH ×2 (08:22→21:07)
[2017-10-15] MEDS: Potassium Chloride 10 MEQ Tab.ER PO SCH ×2 (08:22→21:06)
[2017-10-15] MEDS: Losartan 50 MG Tab PO SCH (08:22)
[2017-10-15] MEDS: Ferrous Sulfate 325 MG Tab PO SCH (08:22)
[2017-10-15] MEDS: Clotrimazole 1% Crm 30 GM Tube TOP SCH ×2 (08:24→21:10)
[2017-10-15] MEDS: Temazepam 15 MG Cap PO PRN (21:07)
[2017-10-15] MEDS: atorvaSTATin 10 MG Tab PO SCH (21:07)
[2017-10-16] MEDS: Rifampin 150 MG Cap PO SCH ×2 (05:29→16:24)
--- NOTE | 2017-10-16 09:07 | PN ---
DATE: 10/15/2017 SUBJECTIVE: Ms. Mercado is a 76-year-old female, seen for subsequent hospital stay. The patient has a rash on the left arm, shoulder which was very itchy. No change in her self-care products. No fever, chills, shortness of breath, or wheezing. She was started on triamcinolone ointment yesterday and this has significantly helped with the rash and itching. Otherwise, she had maintained good spirits per her records, where she has no new other concerns. OBJECTIVE: Vital Signs: Blood pressure 123/74, heart rate of 103 beats per minute, respirations 20 breaths per minute, oxygen saturation 98, temperature 98.2. General Appearance: Awake in distress. Chest: Symmetric chest expansion. Lungs: Bilateral air entry. CVS: Regular rate and rhythm. Abdomen: Soft, normoactive bowel sounds. ASSESSMENT AND PLAN: The patient to continue with triamcinolone acetonide for the itching. Her last blood test yesterday; hemoglobin has improved, her CRP has improved. She went for her appointment with her Orthopedics and Infectious Disease. Infectious Disease has been requested for ultrasound of the right hip to rule out any fluid collection in the hip joint. There are no new orders from the Orthopedics. There is a recheck recommended on 10/24 via telemed. We will continue to follow the patient in the swing bed as needed. [facility] /[id number]
[2017-10-16] MEDS: Losartan 50 MG Tab PO SCH (09:13)
[2017-10-16] MEDS: amLODIPine 5 MG Tab PO SCH (09:14)
[2017-10-16] MEDS: Ferrous Sulfate 325 MG Tab PO SCH (09:14)
[2017-10-16] MEDS: Aspirin 325 MG Tab.EC PO SCH ×2 (09:14→21:12)
[2017-10-16] MEDS: Potassium Chloride 10 MEQ Tab.ER PO SCH ×2 (09:14→21:12)
[2017-10-16] MEDS: Multivitamins, Therapeutic with Minerals Tab PO SCH (09:14)
[2017-10-16] MEDS: Cefepime 2 GM in Sodium Chloride 0.9% 100 ML IV SCH ×3 (09:15→23:38)
[2017-10-16] MEDS: Clotrimazole 1% Crm 30 GM Tube TOP SCH ×2 (11:32→21:14)
[2017-10-16] MEDS: Triamcinolone Acetonide 0.1% Crm 15 GM Tube TOP PRN ×2 (11:33→21:15)
--- NOTE | 2017-10-16 12:25 | US ---
Clinical history: 76-year-old female, right hip prosthesis August, infection and subsequent replacement right hip 3 weeks ago. Interpretation: Nondiagnostic exam. Suggestion small collection of fluid right groin but extensive artifact associated with hip prosthesi s. Suggest repeat CT exam of the region for comparison with study 06 October 2017 may be helpful.
[2017-10-16] MEDS: atorvaSTATin 10 MG Tab PO SCH (21:11)
[2017-10-16] MEDS: Temazepam 15 MG Cap PO PRN (21:12)
[2017-10-17] MEDS: Rifampin 150 MG Cap PO SCH ×2 (05:49→16:45)
[2017-10-17] MEDS: Cefepime 2 GM in Sodium Chloride 0.9% 100 ML IV SCH ×3 (07:53→23:52)
[2017-10-17] MEDS: Sodium Chloride 0.9% 10 ML Syringe FLUSH PRN ×3 (07:54→23:48)
[2017-10-17] MEDS: Multivitamins, Therapeutic with Minerals Tab PO SCH (08:42)
[2017-10-17] MEDS: amLODIPine 5 MG Tab PO SCH (08:42)
[2017-10-17] MEDS: Losartan 50 MG Tab PO SCH (08:42)
[2017-10-17] MEDS: Ferrous Sulfate 325 MG Tab PO SCH (08:42)
[2017-10-17] MEDS: Potassium Chloride 10 MEQ Tab.ER PO SCH ×2 (08:42→20:36)
[2017-10-17] MEDS: Aspirin 325 MG Tab.EC PO SCH ×2 (08:42→20:36)
[2017-10-17] MEDS: Clotrimazole 1% Crm 30 GM Tube TOP SCH ×2 (08:43→20:41)
[2017-10-17] MEDS: Triamcinolone Acetonide 0.1% Crm 15 GM Tube TOP PRN ×2 (08:44→20:42)
[2017-10-17] MEDS ORDERED: Iopamidol 612 MG/ML 100 ML Bottle IVPUSH ONE (11:45)
--- NOTE | 2017-10-17 15:19 | CT ---
CLINICAL HISTORY: 76-year-old 198 pound female who had total right hip arthroplasty August 2017 for "se reena degenerative changes"; subsequent infection; replacement of the right hip prosthesis early Sepus t (3 weeks ago) and now hospitalized with "drainage". CT scan right hip revealed "soft tissue inflamm ation containing locules of gas extending from the superior margin of the gluteus christian to the cuta neous surface" suspicious of infection and/or abscess". Reevaluate please. SCAN TECHNIQUE: Volume acquisition of data from an unenhanced CT scan right hemipelvis, hip and proxi mal right femur identical to exam 06 October 2017 while the patient was lying supine on the Siemens mu ltislice scanner [place], [place]. All data archived in the PACS [employer] for storage, reformatting axial/sagittal/coronal planes and study (bone/soft tissue windows). INTERPRETATION: 1. Acetabular "cup" and femoral complements total right hip prosthesis appear satisfactorily "seated" in the bony host and unchanged in appearance since 06 October 2017 exam. No new signs of osteomyeliti s, "loosening", fracture or dislocation. 2. Some apparent edema and loss of definition gluteus musculature posterolaterally, behind the right hip prosthesis, with reproducible collection of fluid and air (abscess?) that extends to the cutaneou s surface as noted on earlier exam. 3. No additional organizing collection of fluid or ipsilateral extension of this inflammatory process . 4. No obvious fluid collection in the hip joint (some imaging compromise, i.e., extensive artifact as sociated with hardware). No obvious inflammatory extension or involvement of the soft tissues in the pelvis. 5. Osteoporosis. CONCLUSION: Periarticular inflammatory changes soft tissues around the right hip extending to the cut aneous surface posterolaterally, as noted (unchanged) 06 October 2017. Subcutaneous collection of flui d/gas (air) unchanged. No additional new organized fluid collection (abscess).
[2017-10-17] MEDS: atorvaSTATin 10 MG Tab PO SCH (20:36)
[2017-10-18] MEDS: Sodium Chloride 0.9% 10 ML Syringe FLUSH PRN ×3 (00:25→16:20)
[2017-10-18] MEDS: Rifampin 150 MG Cap PO SCH ×2 (06:47→16:20)
[2017-10-18] MEDS: Cefepime 2 GM in Sodium Chloride 0.9% 100 ML IV SCH ×2 (07:59→16:18)
[2017-10-18] MEDS: Potassium Chloride 10 MEQ Tab.ER PO SCH ×2 (09:44→22:26)
[2017-10-18] MEDS: Multivitamins, Therapeutic with Minerals Tab PO SCH (09:44)
[2017-10-18] MEDS: Losartan 50 MG Tab PO SCH (09:44)
[2017-10-18] MEDS: amLODIPine 5 MG Tab PO SCH (09:44)
[2017-10-18] MEDS: Ferrous Sulfate 325 MG Tab PO SCH (09:44)
[2017-10-18] MEDS: Aspirin 325 MG Tab.EC PO SCH ×2 (09:45→22:26)
[2017-10-18] MEDS: Clotrimazole 1% Crm 30 GM Tube TOP SCH ×2 (09:47→22:28)
[2017-10-18] MEDS: Acetaminophen 325 MG Tab PO PRN (13:35)
[2017-10-18] MEDS: atorvaSTATin 10 MG Tab PO SCH (22:26)
[2017-10-19] MEDS: Cefepime 2 GM in Sodium Chloride 0.9% 100 ML IV SCH ×3 (00:44→16:18)
[2017-10-19] MEDS: Rifampin 150 MG Cap PO SCH ×2 (06:34→16:17)
[2017-10-19] MEDS: amLODIPine 5 MG Tab PO SCH (08:42)
[2017-10-19] MEDS: Multivitamins, Therapeutic with Minerals Tab PO SCH (08:42)
[2017-10-19] MEDS: Aspirin 325 MG Tab.EC PO SCH ×2 (08:42→21:27)
[2017-10-19] MEDS: Potassium Chloride 10 MEQ Tab.ER PO SCH ×2 (08:42→21:27)
[2017-10-19] MEDS: Ferrous Sulfate 325 MG Tab PO SCH (08:43)
[2017-10-19] MEDS: Acetaminophen 325 MG Tab PO PRN (08:43)
[2017-10-19] MEDS: Losartan 50 MG Tab PO SCH (08:43)
[2017-10-19] MEDS: Clotrimazole 1% Crm 30 GM Tube TOP SCH ×2 (08:55→21:27)
--- NOTE | 2017-10-19 11:56 | PCM.PN ---
- General Info Date of Service: 10/19/17 Subjective Update: Patient is 76 y/o F with PMH of HTN, OA, s/p left RADHA in the past. She underwent right RADHA on 09/04. She was admitted to [facility] on 09/19 with right septic total hip arthropalsty and underwent excisional irrigation and debridement. Cx positive for MSSA. She was admitted to swing bed to continue IV cefazolin. Plan is to complete 6 week course on 11/01. Today patient was seen on subsequent hospital stay. Reports no complaints. Says she is doing well. Rash on right shoulder is resolving. She denies fever, chills. Functional Status: Reports: Pain Controlled - Review of Systems General: Reports: No Symptoms HEENT: Reports: No Symptoms Pulmonary: Reports: No Symptoms Cardiovascular: Reports: No Symptoms Gastrointestinal: Reports: No Symptoms Genitourinary: Reports: No Symptoms Musculoskeletal: Reports: No Symptoms Skin: Reports: No Symptoms Neurological: Reports: No Symptoms Psychiatric: Reports: No Symptoms - Patient Data Vitals - Most Recent: Last Vital Signs Temp 97.4 F 10/19/17 08:00 Pulse 71 10/19/17 08:00 Resp 20 10/19/17 08:00 BP 127/71 10/19/17 08:43 Pulse Ox 95 10/19/17 08:00 Weight - Most Recent: 198 lb I&O - Last 24 Hours: Intake & Output 10/18/17 10/19/17 10/19/17 22:59 06:59 14:59 Intake Total 220 664 Balance 220 664 Med Orders - Current: Current Medications Acetaminophen (Tylenol) 650 mg PO DAILY PRN PRN Reason: Pain Last Admin: 10/19/17 08:43 Dose: 650 mg Amlodipine Besylate (Norvasc) 10 mg PO DAILY [facility] Last Admin: 10/19/17 08:42 Dose: 10 mg Aspirin (Ecotrin) 325 mg PO BID [facility] Last Admin: 10/19/17 08:42 Dose: 325 mg Atorvastatin Calcium (Lipitor) 10 mg PO BEDTIME [facility] Last Admin: 10/18/17 22:26 Dose: 10 mg Clotrimazole (Lotrimin Af 1% Crm) 0 gm TOP BID [facility] Last Admin: 10/19/17 08:55 Dose: 1 applic Ferrous Sulfate (Ferrous Sulfate) 325 mg PO DAILY [facility] Last Admin: 10/19/17 08:43 Dose: 325 mg Cefepime HCl 2 gm/ Sodium (Chloride) 100 mls @ 200 mls/hr IV Q8H [facility] Last Admin: 10/19/17 08:43 Dose: 200 mls/hr Losartan Potassium (Cozaar) 50 mg PO DAILY [facility] Last Admin: 10/19/17 08:43 Dose: 50 mg Magnesium Hydroxide (Milk Of Magnesia) 30 ml PO Q12H PRN PRN Reason: Constipation Methyl Salicylate (Icy Hot Cream) 1 gm TOP Q8H PRN PRN Reason: Pain Last Admin: 10/06/17 09:06 Dose: 1 applic Morphine Sulfate (Morphine) 2 mg IVPUSH Q2H PRN PRN Reason: Pain (severe 7-10) Multivitamins/Minerals (Vitamins And Minerals) 1 tab PO DAILY [facility] Last Admin: 10/19/17 08:42 Dose: 1 tab Ondansetron HCl (Zofran Odt) 8 mg PO Q8HR PRN PRN Reason: Nausea Oxycodone HCl (Oxycodone) 5 mg PO Q12H PRN PRN Reason: Pain Oxycodone/Acetaminophen (Percocet 325-5 Mg) 1 tab PO Q6H PRN PRN Reason: Pain (moderate 4-6) Polyethylene Glycol (Miralax) 17 gm PO DAILY PRN PRN Reason: Constipation Potassium Chloride (Klor-Con 10) 20 meq PO BID [facility] Last Admin: 10/19/17 08:42 Dose: 20 meq [facility] Last Admin: 10/19/17 06:34 Dose: 300 mg Senna/Docusate Sodium (Senna Plus) 2 tab PO DAILY PRN PRN Reason: Constipation Sodium Chloride (Saline Flush) 10 ml FLUSH ASDIRECTED PRN PRN Reason: IV Use Last Admin: 10/18/17 16:20 Dose: 10 ml Temazepam (Restoril) 15 mg PO BEDTIME PRN PRN Reason: Sleep Last Admin: 10/16/17 21:12 Dose: 15 mg Triamcinolone Acetonide (Triamcinolone Acetonide 0.1% Crm) 0 gm TOP BID PRN PRN Reason: Itching Last Admin: 10/17/17 20:42 Dose: 1 applic Discontinued Medications Cefazolin Sodium/Dextrose 2 gm (/ Premix) 50 mls @ 100 mls/hr IV Q8HR [facility] Last Infusion: 10/07/17 06:26 Dose: Infused Cefepime HCl 2 gm/ Sodium (Chloride) 50 mls @ 100 mls/hr IV Q12H [facility] Last Admin: 10/07/17 13:19 Dose: Not Given Cefepime HCl 2 gm/ Sodium (Chloride) 100 mls @ 200 mls/hr IV Q12H [facility] Last Admin: 10/07/17 13:19 Dose: Not Given Cefepime HCl 2 gm/ Sodium (Chloride) 100 mls @ 200 mls/hr IV Q12H [facility] Last Admin: 10/08/17 16:40 Dose: Not Given Iopamidol (Isovue-300 (61%)) 100 ml IVPUSH ONETIME ONE Stop: 10/06/17 15:18 Last Admin: 10/06/17 15:32 Dose: 100 ml Iopamidol (Isovue-300 (61%)) 100 ml IVPUSH ONETIME ONE Stop: 10/17/17 11:46 Last Admin: 10/17/17 14:30 Dose: 100 ml Non-Formulary Medication (Ferrous Sulfate) 1 tab PO DAILY [facility] Oxycodone HCl (Oxycodone) 5 mg PO Q4HR [facility] Last Admin: 10/02/17 10:28 Dose: 5 mg Oxycodone HCl (Oxycodone) 5 mg PO Q12H PRN PRN Reason: Pain Oxycodone HCl (Oxycodone) 5 mg PO Q12H [facility] Last Admin: 10/13/17 08:02 Dose: 5 mg Oxycodone/Acetaminophen (Percocet 325-5 Mg) 1 tab PO Q4H PRN PRN Reason: Pain (moderate 4-6) Senna/Docusate Sodium (Senna Plus) 2 tab PO DAILY [facility] Last Admin: 10/06/17 09:21 Dose: Not Given - Exam Quality Assessment: DVT Prophylaxis General: Alert, Oriented HEENT: Pupils Equal, Pupils Reactive, EOMI, Mucous Membr. Moist/[place] Neck: Supple Lungs: Clear to Auscultation, Normal Respiratory Effort Cardiovascular: Regular Rate, Regular Rhythm GI/Abdominal Exam: Normal Bowel Sounds, Soft, Non-Tender, No Organomegaly, No Distention, No Abnormal Bruit, No Mass, Pelvis Stable (Female) Exam: Normal External Exam, Normal Speculum Exam, Normal Bimanual Exam Back Exam: Normal Inspection, Full Range of Motion Extremities: Normal Inspection, Normal Range of Motion, Non-Tender, No Pedal Edema, Normal Capillary Refill Skin: Warm, Dry, Intact Wound/Incisions: Healing Well Neurological: No New Focal Deficit Psy/Mental Status: Alert, Normal Affect, Normal Mood - Problem List Review Problem List Initiated/Reviewed/Updated: Yes - Plan Plan:: Septic Right total hip arthropalsty s/p excisional irrigation and debridement -Cx positive for MSSA -continue IV cefazolin. Plan is to complete 6 week course on 11/01 -PT/OT Osteoarthritis -Tyleron prn HTN -BP with limits -continue current care Right shoulder rash -continue triamcinolone topical cream Full code
[2017-10-19] MEDS: atorvaSTATin 10 MG Tab PO SCH (21:27)
[2017-10-20] MEDS: Cefepime 2 GM in Sodium Chloride 0.9% 100 ML IV SCH ×3 (00:09→16:19)
[2017-10-20] MEDS: Rifampin 150 MG Cap PO SCH ×2 (06:45→16:30)
[2017-10-20] MEDS: Acetaminophen 325 MG Tab PO PRN (06:50)
[2017-10-20] MEDS: Losartan 50 MG Tab PO SCH (08:56)
[2017-10-20] MEDS: amLODIPine 5 MG Tab PO SCH (08:56)
[2017-10-20] MEDS: Potassium Chloride 10 MEQ Tab.ER PO SCH ×2 (08:57→21:12)
[2017-10-20] MEDS: Clotrimazole 1% Crm 30 GM Tube TOP SCH ×2 (08:57→21:13)
[2017-10-20] MEDS: Ferrous Sulfate 325 MG Tab PO SCH (08:57)
[2017-10-20] MEDS: Aspirin 325 MG Tab.EC PO SCH ×2 (08:57→21:12)
[2017-10-20] MEDS: Multivitamins, Therapeutic with Minerals Tab PO SCH (08:57)
[2017-10-20] MEDS: atorvaSTATin 10 MG Tab PO SCH (21:12)
[2017-10-21] MEDS: Cefepime 2 GM in Sodium Chloride 0.9% 100 ML IV SCH ×4 (00:20→23:33)
[2017-10-21] MEDS: Rifampin 150 MG Cap PO SCH ×2 (06:19→16:22)
[2017-10-21] MEDS: Potassium Chloride 10 MEQ Tab.ER PO SCH ×2 (08:29→20:50)
[2017-10-21] MEDS: Ferrous Sulfate 325 MG Tab PO SCH (08:29)
[2017-10-21] MEDS: Losartan 50 MG Tab PO SCH (08:29)
[2017-10-21] MEDS: Aspirin 325 MG Tab.EC PO SCH ×2 (08:30→20:51)
[2017-10-21] MEDS: amLODIPine 5 MG Tab PO SCH (08:30)
[2017-10-21] MEDS: Multivitamins, Therapeutic with Minerals Tab PO SCH (08:30)
[2017-10-21] MEDS: Sodium Chloride 0.9% 10 ML Syringe FLUSH PRN ×2 (08:31→15:50)
[2017-10-21] MEDS: Acetaminophen 325 MG Tab PO PRN (12:26)
[2017-10-21] MEDS: Clotrimazole 1% Crm 30 GM Tube TOP SCH ×2 (12:27→20:53)
[2017-10-21] MEDS: atorvaSTATin 10 MG Tab PO SCH (20:50)
[2017-10-21] MEDS: Temazepam 15 MG Cap PO PRN (20:51)
[2017-10-21] MEDS: Triamcinolone Acetonide 0.1% Crm 15 GM Tube TOP PRN (20:56)
[2017-10-22] MEDS: Rifampin 150 MG Cap PO SCH ×2 (05:25→16:34)
[2017-10-22] MEDS: Cefepime 2 GM in Sodium Chloride 0.9% 100 ML IV SCH ×3 (08:05→23:56)
[2017-10-22] MEDS: Aspirin 325 MG Tab.EC PO SCH ×2 (08:11→21:23)
[2017-10-22] MEDS: Multivitamins, Therapeutic with Minerals Tab PO SCH (08:11)
[2017-10-22] MEDS: Losartan 50 MG Tab PO SCH (08:11)
[2017-10-22] MEDS: amLODIPine 5 MG Tab PO SCH (08:11)
[2017-10-22] MEDS: Ferrous Sulfate 325 MG Tab PO SCH (08:11)
[2017-10-22] MEDS: Potassium Chloride 10 MEQ Tab.ER PO SCH ×2 (08:12→21:23)
[2017-10-22] MEDS: Clotrimazole 1% Crm 30 GM Tube TOP SCH ×2 (08:14→21:25)
[2017-10-22] MEDS: Triamcinolone Acetonide 0.1% Crm 15 GM Tube TOP PRN (08:15)
[2017-10-22] MEDS: Acetaminophen 325 MG Tab PO PRN ×2 (09:21→18:25)
[2017-10-22] MEDS: Sodium Chloride 0.9% 10 ML Syringe FLUSH PRN ×2 (15:51→16:34)
[2017-10-22] MEDS: atorvaSTATin 10 MG Tab PO SCH (21:23)
[2017-10-23] MEDS: Rifampin 150 MG Cap PO SCH ×2 (06:28→17:19)
[2017-10-23] MEDS: Cefepime 2 GM in Sodium Chloride 0.9% 100 ML IV SCH ×2 (07:24→16:17)
[2017-10-23] MEDS: Sodium Chloride 0.9% 10 ML Syringe FLUSH PRN (07:26)
[2017-10-23] MEDS: amLODIPine 5 MG Tab PO SCH (08:04)
[2017-10-23] MEDS: Potassium Chloride 10 MEQ Tab.ER PO SCH ×2 (08:04→20:36)
[2017-10-23] MEDS: Aspirin 325 MG Tab.EC PO SCH ×2 (08:04→20:37)
[2017-10-23] MEDS: Ferrous Sulfate 325 MG Tab PO SCH (08:04)
[2017-10-23] MEDS: Losartan 50 MG Tab PO SCH (08:04)
[2017-10-23] MEDS: Multivitamins, Therapeutic with Minerals Tab PO SCH (08:04)
[2017-10-23] MEDS: Clotrimazole 1% Crm 30 GM Tube TOP SCH ×2 (08:05→20:36)
[2017-10-23] MEDS: Acetaminophen 325 MG Tab PO PRN (08:36)
[2017-10-23] MEDS: atorvaSTATin 10 MG Tab PO SCH (20:37)
[2017-10-24] MEDS: Cefepime 2 GM in Sodium Chloride 0.9% 100 ML IV SCH ×4 (00:21→23:44)
[2017-10-24] MEDS: Rifampin 150 MG Cap PO SCH ×2 (06:01→16:09)
[2017-10-24] MEDS: Multivitamins, Therapeutic with Minerals Tab PO SCH (10:12)
[2017-10-24] MEDS: Potassium Chloride 10 MEQ Tab.ER PO SCH ×2 (10:13→21:01)
[2017-10-24] MEDS: Ferrous Sulfate 325 MG Tab PO SCH (10:13)
[2017-10-24] MEDS: Aspirin 325 MG Tab.EC PO SCH ×2 (10:13→21:00)
[2017-10-24] MEDS: Losartan 50 MG Tab PO SCH (10:13)
[2017-10-24] MEDS: amLODIPine 5 MG Tab PO SCH (10:14)
[2017-10-24] MEDS: Clotrimazole 1% Crm 30 GM Tube TOP SCH ×2 (10:15→21:06)
[2017-10-24] MEDS: Acetaminophen 325 MG Tab PO PRN (13:22)
[2017-10-24] MEDS: atorvaSTATin 10 MG Tab PO SCH (21:01)
[2017-10-24] MEDS: Triamcinolone Acetonide 0.1% Crm 15 GM Tube TOP PRN (21:03)
[2017-10-25] MEDS: Rifampin 150 MG Cap PO SCH ×2 (05:48→16:04)
[2017-10-25 07:15] LABS: ANION GAP 2.4; CHLORIDE,CL 102 mmol/L (101-111); SODIUM,NA 134 mmol/L (135-145)
[2017-10-25] MEDS: Cefepime 2 GM in Sodium Chloride 0.9% 100 ML IV SCH ×2 (08:33→16:05)
[2017-10-25] MEDS: Sodium Chloride 0.9% 10 ML Syringe FLUSH PRN ×4 (08:33→16:44)
[2017-10-25] MEDS: Losartan 50 MG Tab PO SCH (08:36)
[2017-10-25] MEDS: Potassium Chloride 10 MEQ Tab.ER PO SCH ×2 (08:36→20:38)
[2017-10-25] MEDS: Aspirin 325 MG Tab.EC PO SCH ×2 (08:36→20:37)
[2017-10-25] MEDS: Ferrous Sulfate 325 MG Tab PO SCH (08:36)
[2017-10-25] MEDS: Multivitamins, Therapeutic with Minerals Tab PO SCH (08:36)
[2017-10-25] MEDS: amLODIPine 5 MG Tab PO SCH (08:37)
[2017-10-25] MEDS: Clotrimazole 1% Crm 30 GM Tube TOP SCH ×2 (08:38→20:39)
[2017-10-25] MEDS: Acetaminophen 325 MG Tab PO PRN (09:25)
--- NOTE | 2017-10-25 10:24 | PCM.PN ---
- General Info Date of Service: 10/25/17 Admission Dx/Problem (Free Text): Patient is 76 y/o F with PMH of HTN, OA, s/p left RADHA in the past. She underwent right RADHA on 09/04. She was admitted to [facility] on 09/19 with right septic total hip arthropalsty and underwent excisional irrigation and debridement. Cx positive for MSSA. She was admitted to swing bed to continue IV cefazolin. Plan is to complete 6 week course on 11/01. Subjective Update: Reports no complaints. Says she is doing well. She denies fever, chills. r. hip pain is moderate, worse with activity, better with rest no associated fever there is small amount of drainage Functional Status: Reports: Pain Controlled, Tolerating Diet, Ambulating - Review of Systems General: Denies: Fever Pulmonary: Denies: Shortness of Breath Cardiovascular: Denies: Chest Pain Gastrointestinal: Denies: Abdominal Pain - Patient Data Vitals - Most Recent: Last Vital Signs Temp 36.4 C 10/25/17 08:20 Pulse 87 10/25/17 08:20 Resp 20 10/25/17 08:20 BP 138/67 10/25/17 08:37 Pulse Ox 98 10/25/17 08:20 Weight - Most Recent: 89.131 kg I&O - Last 24 Hours: Intake & Output 10/24/17 10/25/17 10/25/17 22:59 06:59 14:59 Intake Total 440 94 Balance 440 94 Lab Results Last 24 Hours: Laboratory Results - last 24 hr 10/25/17 10/25/17 Range/Units 06:40 06:40 WBC 5.1 (5.0-10.0) 10^3/uL RBC 3.66 L (4.2-5.4) 10^6/uL Hgb 9.6 L (12.0-16.0) g/dL Hct 32.2 L (37.0-47.0) % MCV 88.0 (80-100) fL MCH 26.2 L (27.0-34.0) pg MCHC 29.8 L (33.0-35.0) g/dL Plt Count 316 (150-450) 10^3/uL Neut % (Auto) 68.4 (42.2-75.2) % Lymph % (Auto) 16.7 L (20.5-50.1) % [place] % (Auto) 8.8 H (2-8) % Eos % (Auto) 5.7 H (1.0-3.0) % Baso % (Auto) 0.4 (0.0-1.0) % Sodium 134 L (135-145) mmol/L Potassium 4.4 (3.6-5.0) mmol/L Chloride 102 (101-111) mmol/L Carbon Dioxide 34.0 H (21.0-31.0) mmol/L Anion Gap 2.4 BUN 7 (7-18) mg/dL Creatinine 0.5 L (0.6-1.3) mg/dL Est Cr Clr Drug Dosing 74.49 mL/min Estimated GFR (MDRD) > 60 Glucose 111 H (74-105) mg/dL Calcium 8.6 (8.4-10.2) mg/dl Med Orders - Current: Current Medications Acetaminophen (Tylenol) 650 mg PO Q6H PRN PRN Reason: Pain Last Admin: 10/25/17 09:25 Dose: 650 mg Amlodipine Besylate (Norvasc) 10 mg PO DAILY [facility] Last Admin: 10/25/17 08:37 Dose: 10 mg Aspirin (Ecotrin) 325 mg PO BID [facility] Last Admin: 10/25/17 08:36 Dose: 325 mg Atorvastatin Calcium (Lipitor) 10 mg PO BEDTIME [facility] Last Admin: 10/24/17 21:01 Dose: 10 mg Clotrimazole (Lotrimin Af 1% Crm) 0 gm TOP BID [facility] Last Admin: 10/25/17 08:38 Dose: 1 applic Ferrous Sulfate (Ferrous Sulfate) 325 mg PO DAILY [facility] Last Admin: 10/25/17 08:36 Dose: 325 mg Cefepime HCl 2 gm/ Sodium (Chloride) 100 mls @ 200 mls/hr IV Q8H [facility] Last Admin: 10/25/17 08:33 Dose: 200 mls/hr Losartan Potassium (Cozaar) 50 mg PO DAILY [facility] Last Admin: 10/25/17 08:36 Dose: 50 mg Magnesium Hydroxide (Milk Of Magnesia) 30 ml PO Q12H PRN PRN Reason: Constipation Methyl Salicylate (Icy Hot Cream) 1 gm TOP Q8H PRN PRN Reason: Pain Last Admin: 10/06/17 09:06 Dose: 1 applic Morphine Sulfate (Morphine) 2 mg IVPUSH Q2H PRN PRN Reason: Pain (severe 7-10) Multivitamins/Minerals (Vitamins And Minerals) 1 tab PO DAILY [facility] Last Admin: 10/25/17 08:36 Dose: 1 tab Ondansetron HCl (Zofran Odt) 8 mg PO Q8HR PRN PRN Reason: Nausea Oxycodone HCl (Oxycodone) 5 mg PO Q12H PRN PRN Reason: Pain Last Admin: 10/21/17 20:52 Dose: 5 mg Oxycodone/Acetaminophen (Percocet 325-5 Mg) 1 tab PO Q6H PRN PRN Reason: Pain (moderate 4-6) Polyethylene Glycol (Miralax) 17 gm PO DAILY PRN PRN Reason: Constipation Potassium Chloride (Klor-Con 10) 20 meq PO BID [facility] Last Admin: 10/25/17 08:36 Dose: 20 meq Rifampin (Rifadin) 300 mg PO BIDAC [facility] Last Admin: 10/25/17 05:48 Dose: 300 mg Senna/Docusate Sodium (Senna Plus) 2 tab PO DAILY PRN PRN Reason: Constipation Sodium Chloride (Saline Flush) 10 ml FLUSH ASDIRECTED PRN PRN Reason: IV Use Last Admin: 10/25/17 09:07 Dose: 10 ml Temazepam (Restoril) 15 mg PO BEDTIME PRN PRN Reason: Sleep Last Admin: 10/21/17 20:51 Dose: 15 mg Triamcinolone Acetonide (Triamcinolone Acetonide 0.1% Crm) 0 gm TOP BID PRN PRN Reason: Itching Last Admin: 10/24/17 21:03 Dose: 1 applic Discontinued Medications Acetaminophen (Tylenol) 650 mg PO DAILY PRN PRN Reason: Pain Last Admin: 10/19/17 08:43 Dose: 650 mg Cefazolin Sodium/Dextrose 2 gm (/ Premix) 50 mls @ 100 mls/hr IV Q8HR [facility] Last Infusion: 10/07/17 06:26 Dose: Infused Cefepime HCl 2 gm/ Sodium (Chloride) 50 mls @ 100 mls/hr IV Q12H [facility] Last Admin: 10/07/17 13:19 Dose: Not Given Cefepime HCl 2 gm/ Sodium (Chloride) 100 mls @ 200 mls/hr IV Q12H [facility] Last Admin: 10/07/17 13:19 Dose: Not Given Cefepime HCl 2 gm/ Sodium (Chloride) 100 mls @ 200 mls/hr IV Q12H [facility] Last Admin: 10/08/17 16:40 Dose: Not Given Iopamidol (Isovue-300 (61%)) 100 ml IVPUSH ONETIME ONE Stop: 10/06/17 15:18 Last Admin: 10/06/17 15:32 Dose: 100 ml Iopamidol (Isovue-300 (61%)) 100 ml IVPUSH ONETIME ONE Stop: 10/17/17 11:46 Last Admin: 10/17/17 14:30 Dose: 100 ml Non-Formulary Medication (Ferrous Sulfate) 1 tab PO DAILY [facility] Oxycodone HCl (Oxycodone) 5 mg PO Q4HR [facility] Last Admin: 10/02/17 10:28 Dose: 5 mg Oxycodone HCl (Oxycodone) 5 mg PO Q12H PRN PRN Reason: Pain Oxycodone HCl (Oxycodone) 5 mg PO Q12H [facility] Last Admin: 10/13/17 08:02 Dose: 5 mg Oxycodone/Acetaminophen (Percocet 325-5 Mg) 1 tab PO Q4H PRN PRN Reason: Pain (moderate 4-6) Senna/Docusate Sodium (Senna Plus) 2 tab PO DAILY [facility] Last Admin: 10/06/17 09:21 Dose: Not Given - Exam General: Alert, Oriented Neck: Supple Lungs: Clear to Auscultation, Normal Respiratory Effort Cardiovascular: Regular Rate, Regular Rhythm Extremities: No Pedal Edema - Problem List & Annotations (1) Superficial incisional infection of surgical site SNOMED Code(s): 481055926 Code(s): T81.4XXA - INFECTION FOLLOWING A PROCEDURE, INITIAL ENCOUNTER Status: Acute Current Visit: No Qualifiers: Encounter type: initial encounter Qualified Code(s): T81.4XXA - Infection following a procedure, initial encounter - Problem List Review Problem List Initiated/Reviewed/Updated: Yes - Plan Plan:: Septic Right total hip arthropalsty s/p excisional irrigation and debridement -Cx positive for MSSA -continue IV cefazolin. Plan is to complete 6 week course on 11/01 -PT/OT Osteoarthritis -Tyleron prn HTN -BP is controlled -continue current care Right shoulder rash -continue triamcinolone topical cream hyponatremia mild will follow Full code
[2017-10-25] MEDS: atorvaSTATin 10 MG Tab PO SCH (20:38)
[2017-10-26] MEDS: Cefepime 2 GM in Sodium Chloride 0.9% 100 ML IV SCH ×3 (00:09→19:44)
[2017-10-26] MEDS ORDERED: Alteplase 2 MG Vial IVPUSH ONE ×2 (00:30→03:05)
[2017-10-26] MEDS ORDERED: Sodium Chloride 0.9% 10 ML Syringe FLUSH PRN (03:10)
[2017-10-26] MEDS: Rifampin 150 MG Cap PO SCH ×2 (05:31→17:04)
[2017-10-26] MEDS: Ferrous Sulfate 325 MG Tab PO SCH (08:30)
[2017-10-26] MEDS: Losartan 50 MG Tab PO SCH (08:30)
[2017-10-26] MEDS: Aspirin 325 MG Tab.EC PO SCH ×2 (08:31→20:54)
[2017-10-26] MEDS: Potassium Chloride 10 MEQ Tab.ER PO SCH ×2 (08:31→20:54)
[2017-10-26] MEDS: amLODIPine 5 MG Tab PO SCH (08:31)
[2017-10-26] MEDS: Multivitamins, Therapeutic with Minerals Tab PO SCH (08:32)
[2017-10-26] MEDS: Clotrimazole 1% Crm 30 GM Tube TOP SCH ×2 (08:33→20:54)
[2017-10-26] MEDS: Sodium Chloride 0.9% 10 ML Syringe FLUSH PRN (12:42)
[2017-10-26] MEDS: Acetaminophen 325 MG Tab PO PRN (14:40)
[2017-10-26] MEDS: atorvaSTATin 10 MG Tab PO SCH (20:54)
[2017-10-27] MEDS: Cefepime 2 GM in Sodium Chloride 0.9% 100 ML IV SCH ×3 (04:39→19:47)
[2017-10-27] MEDS: Rifampin 150 MG Cap PO SCH ×2 (05:51→16:29)
[2017-10-27] MEDS: Multivitamins, Therapeutic with Minerals Tab PO SCH (08:53)
[2017-10-27] MEDS: Ferrous Sulfate 325 MG Tab PO SCH (08:54)
[2017-10-27] MEDS: Potassium Chloride 10 MEQ Tab.ER PO SCH ×2 (08:54→20:56)
[2017-10-27] MEDS: Losartan 50 MG Tab PO SCH (08:54)
[2017-10-27] MEDS: Aspirin 325 MG Tab.EC PO SCH ×2 (08:55→20:56)
[2017-10-27] MEDS: amLODIPine 5 MG Tab PO SCH (08:56)
[2017-10-27] MEDS: Clotrimazole 1% Crm 30 GM Tube TOP SCH ×2 (08:57→20:57)
[2017-10-27] MEDS: Sodium Chloride 0.9% 10 ML Syringe FLUSH PRN (13:16)
[2017-10-27] MEDS: Acetaminophen 325 MG Tab PO PRN (13:25)
[2017-10-27] MEDS: atorvaSTATin 10 MG Tab PO SCH (20:57)
[2017-10-28] MEDS: Cefepime 2 GM in Sodium Chloride 0.9% 100 ML IV SCH ×3 (04:25→19:55)
[2017-10-28] MEDS: Rifampin 150 MG Cap PO SCH ×2 (05:36→15:59)
[2017-10-28] MEDS: Potassium Chloride 10 MEQ Tab.ER PO SCH ×2 (08:31→20:40)
[2017-10-28] MEDS: Losartan 50 MG Tab PO SCH (08:32)
[2017-10-28] MEDS: amLODIPine 5 MG Tab PO SCH (08:32)
[2017-10-28] MEDS: Multivitamins, Therapeutic with Minerals Tab PO SCH (08:32)
[2017-10-28] MEDS: Ferrous Sulfate 325 MG Tab PO SCH (08:32)
[2017-10-28] MEDS: Clotrimazole 1% Crm 30 GM Tube TOP SCH ×2 (08:33→20:41)
[2017-10-28] MEDS: Aspirin 325 MG Tab.EC PO SCH ×2 (08:33→20:40)
[2017-10-28] MEDS: Sodium Chloride 0.9% 10 ML Syringe FLUSH PRN ×2 (11:38→12:45)
[2017-10-28] MEDS: Acetaminophen 325 MG Tab PO PRN ×2 (12:48→20:45)
[2017-10-28] MEDS: atorvaSTATin 10 MG Tab PO SCH (20:40)
[2017-10-29] MEDS: Cefepime 2 GM in Sodium Chloride 0.9% 100 ML IV SCH ×3 (04:24→21:18)
[2017-10-29] MEDS: Rifampin 150 MG Cap PO SCH ×2 (05:37→17:23)
[2017-10-29] MEDS ORDERED: Losartan 50 MG Tab PO ONE (06:00)
[2017-10-29] MEDS ORDERED: Ferrous Sulfate 325 MG Tab PO ONE (06:00)
[2017-10-29] MEDS ORDERED: amLODIPine 5 MG Tab PO ONE (06:00)
[2017-10-29] MEDS ORDERED: Aspirin 325 MG Tab.EC PO ONE (06:00)
[2017-10-29] MEDS ORDERED: Multivitamins, Therapeutic with Minerals Tab PO ONE (06:00)
[2017-10-29] MEDS ORDERED: Potassium Chloride 10 MEQ Tab.ER PO ONE (06:00)
[2017-10-29] MEDS: Losartan 50 MG Tab PO SCH (09:50)
[2017-10-29] MEDS: Aspirin 325 MG Tab.EC PO SCH ×2 (09:50→21:19)
[2017-10-29] MEDS: Potassium Chloride 10 MEQ Tab.ER PO SCH ×2 (09:51→21:19)
[2017-10-29] MEDS: Ferrous Sulfate 325 MG Tab PO SCH (09:51)
[2017-10-29] MEDS: Clotrimazole 1% Crm 30 GM Tube TOP SCH ×2 (09:51→21:19)
[2017-10-29] MEDS: Multivitamins, Therapeutic with Minerals Tab PO SCH (09:52)
[2017-10-29] MEDS: amLODIPine 5 MG Tab PO SCH (09:52)
[2017-10-29] MEDS: Acetaminophen 325 MG Tab PO PRN (17:48)
[2017-10-29] MEDS: atorvaSTATin 10 MG Tab PO SCH (21:19)
[2017-10-30] MEDS: Rifampin 150 MG Cap PO SCH ×2 (05:34→17:11)
[2017-10-30] MEDS: Cefepime 2 GM in Sodium Chloride 0.9% 100 ML IV SCH ×3 (05:34→22:12)
[2017-10-30] MEDS: Clotrimazole 1% Crm 30 GM Tube TOP SCH ×2 (08:30→22:12)
[2017-10-30] MEDS: Aspirin 325 MG Tab.EC PO SCH ×2 (08:30→22:11)
[2017-10-30] MEDS: amLODIPine 5 MG Tab PO SCH (08:30)
[2017-10-30] MEDS: Multivitamins, Therapeutic with Minerals Tab PO SCH (08:30)
[2017-10-30] MEDS: Potassium Chloride 10 MEQ Tab.ER PO SCH ×2 (08:31→22:11)
[2017-10-30] MEDS: Ferrous Sulfate 325 MG Tab PO SCH (08:31)
[2017-10-30] MEDS: Losartan 50 MG Tab PO SCH (08:31)
[2017-10-30] MEDS: Acetaminophen 325 MG Tab PO PRN ×2 (08:34→17:52)
--- NOTE | 2017-10-30 13:48 | PCM.PN ---
- General Info Date of Service: 10/30/17 Admission Dx/Problem (Free Text): Patient is 76 y/o F with PMH of HTN, OA, s/p left RADHA in the past. She underwent right RADHA on 09/04. She was admitted to [facility] on 09/19 with right septic total hip arthropalsty and underwent excisional irrigation and debridement. Cx positive for MSSA. She was admitted to swing bed to continue IV Abx. Plan is to complete 6 week course on 11/01. Subjective Update: Reports no complaints. Says she is doing well. She denies fever, chills. r. hip pain is moderate, worse with activity, better with rest no associated fever she had ID appt. yesterday plan was to cont IV Cefepime and rifampin she had ortho appt cont wound care Functional Status: Reports: Pain Controlled - Review of Systems General: Denies: Fever Pulmonary: Denies: Shortness of Breath Cardiovascular: Denies: Chest Pain Gastrointestinal: Denies: Abdominal Pain Neurological: Denies: Confusion - Patient Data Vitals - Most Recent: Last Vital Signs Temp 37.2 C 10/30/17 08:07 Pulse 104 H 10/30/17 08:07 Resp 20 10/30/17 08:07 BP 125/77 10/30/17 08:31 Pulse Ox 96 10/30/17 08:07 Weight - Most Recent: 89.188 kg I&O - Last 24 Hours: Intake & Output 10/29/17 10/30/17 10/30/17 22:59 06:59 14:59 Intake Total 535 648 220 Balance 535 648 220 Med Orders - Current: Current Medications Acetaminophen (Tylenol) 650 mg PO Q6H PRN PRN Reason: Pain Last Admin: 10/30/17 08:34 Dose: 650 mg Amlodipine Besylate (Norvasc) 10 mg PO DAILY [facility] Last Admin: 10/30/17 08:30 Dose: 10 mg Aspirin (Ecotrin) 325 mg PO BID [facility] Last Admin: 10/30/17 08:30 Dose: 325 mg Atorvastatin Calcium (Lipitor) 10 mg PO BEDTIME [facility] Last Admin: 10/29/17 21:19 Dose: 10 mg Clotrimazole (Lotrimin Af 1% Crm) 0 gm TOP BID [facility] Last Admin: 10/30/17 08:30 Dose: 1 applic Ferrous Sulfate (Ferrous Sulfate) 325 mg PO DAILY [facility] Last Admin: 10/30/17 08:31 Dose: 325 mg Cefepime HCl 2 gm/ Sodium (Chloride) 100 mls @ 200 mls/hr IV Q8HR [facility] Last Admin: 10/30/17 05:34 Dose: 200 mls/hr Losartan Potassium (Cozaar) 50 mg PO DAILY [facility] Last Admin: 10/30/17 08:31 Dose: 50 mg Magnesium Hydroxide (Milk Of Magnesia) 30 ml PO Q12H PRN PRN Reason: Constipation Methyl Salicylate (Icy Hot Cream) 1 gm TOP Q8H PRN PRN Reason: Pain Last Admin: 10/06/17 09:06 Dose: 1 applic Morphine Sulfate (Morphine) 2 mg IVPUSH Q2H PRN PRN Reason: Pain (severe 7-10) Multivitamins/Minerals (Vitamins And Minerals) 1 tab PO DAILY [facility] Last Admin: 10/30/17 08:30 Dose: 1 tab Ondansetron HCl (Zofran Odt) 8 mg PO Q8HR PRN PRN Reason: Nausea Oxycodone HCl (Oxycodone) 5 mg PO Q12H PRN PRN Reason: Pain Last Admin: 10/21/17 20:52 Dose: 5 mg Oxycodone/Acetaminophen (Percocet 325-5 Mg) 1 tab PO Q6H PRN PRN Reason: Pain (moderate 4-6) Polyethylene Glycol (Miralax) 17 gm PO DAILY PRN PRN Reason: Constipation Potassium Chloride (Klor-Con 10) 20 meq PO BID [facility] Last Admin: 10/30/17 08:31 Dose: 20 meq Rifampin (Rifadin) 300 mg PO 0600,1600 [facility] Last Admin: 10/30/17 05:34 Dose: 300 mg Senna/Docusate Sodium (Senna Plus) 2 tab PO DAILY PRN PRN Reason: Constipation Sodium Chloride (Saline Flush) 10 ml FLUSH ASDIRECTED PRN PRN Reason: IV Use Last Admin: 10/28/17 12:45 Dose: 10 ml Sodium Chloride (Saline Flush) 10 ml FLUSH ASDIRECTED PRN PRN Reason: Keep Vein Open Temazepam (Restoril) 15 mg PO BEDTIME PRN PRN Reason: Sleep Last Admin: 10/21/17 20:51 Dose: 15 mg Triamcinolone Acetonide (Triamcinolone Acetonide 0.1% Crm) 0 gm TOP BID PRN PRN Reason: Itching Last Admin: 10/24/17 21:03 Dose: 1 applic Discontinued Medications Acetaminophen (Tylenol) 650 mg PO DAILY PRN PRN Reason: Pain Last Admin: 10/19/17 08:43 Dose: 650 mg Alteplase, Recombinant (Cathflo Activase) 2 mg IVPUSH ONETIME ONE Stop: 10/26/17 00:31 Last Admin: 10/26/17 01:19 Dose: 2 mg Alteplase, Recombinant (Cathflo Activase) 2 mg IVPUSH ONETIME ONE Stop: 10/26/17 03:06 Last Admin: 10/26/17 03:26 Dose: 2 mg Cefazolin Sodium/Dextrose 2 gm (/ Premix) 50 mls @ 100 mls/hr IV Q8HR [facility] Last Infusion: 10/07/17 06:26 Dose: Infused Cefepime HCl 2 gm/ Sodium (Chloride) 50 mls @ 100 mls/hr IV Q12H [facility] Last Admin: 10/07/17 13:19 Dose: Not Given Cefepime HCl 2 gm/ Sodium (Chloride) 100 mls @ 200 mls/hr IV Q12H [facility] Last Admin: 10/07/17 13:19 Dose: Not Given Cefepime HCl 2 gm/ Sodium (Chloride) 100 mls @ 200 mls/hr IV Q12H [facility] Last Admin: 10/08/17 16:40 Dose: Not Given Cefepime HCl 2 gm/ Sodium (Chloride) 100 mls @ 200 mls/hr IV Q8H [facility] Last Admin: 10/26/17 00:09 Dose: 200 mls/hr Cefepime HCl 2 gm/ Sodium (Chloride) 100 mls @ 200 mls/hr IV Q8H [facility] Last Admin: 10/29/17 04:24 Dose: 200 mls/hr Iopamidol (Isovue-300 (61%)) 100 ml IVPUSH ONETIME ONE Stop: 10/06/17 15:18 Last Admin: 10/06/17 15:32 Dose: 100 ml Iopamidol (Isovue-300 (61%)) 100 ml IVPUSH ONETIME ONE Stop: 10/17/17 11:46 Last Admin: 10/17/17 14:30 Dose: 100 ml Non-Formulary Medication (Ferrous Sulfate) 1 tab PO DAILY [facility] Oxycodone HCl (Oxycodone) 5 mg PO Q4HR [facility] Last Admin: 10/02/17 10:28 Dose: 5 mg Oxycodone HCl (Oxycodone) 5 mg PO Q12H PRN PRN Reason: Pain Oxycodone HCl (Oxycodone) 5 mg PO Q12H [facility] Last Admin: 10/13/17 08:02 Dose: 5 mg Oxycodone/Acetaminophen (Percocet 325-5 Mg) 1 tab PO Q4H PRN PRN Reason: Pain (moderate 4-6) Rifampin (Rifadin) 300 mg PO BIDAC [facility] Last Admin: 10/25/17 05:48 Dose: 300 mg Senna/Docusate Sodium (Senna Plus) 2 tab PO DAILY [facility] Last Admin: 10/06/17 09:21 Dose: Not Given - Exam Quality Assessment: No: Supplemental Oxygen General: Alert, Oriented Neck: Supple Lungs: Clear to Auscultation, Normal Respiratory Effort Cardiovascular: Regular Rate, Regular Rhythm, Murmurs (syst) GI/Abdominal Exam: Normal Bowel Sounds, Soft, Non-Tender Extremities: No Pedal Edema - Problem List & Annotations (1) Superficial incisional infection of surgical site SNOMED Code(s): 116665810 Code(s): T81.4XXA - INFECTION FOLLOWING A PROCEDURE, INITIAL ENCOUNTER Status: Acute Current Visit: No Qualifiers: Encounter type: initial encounter Qualified Code(s): T81.4XXA - Infection following a procedure, initial encounter - Problem List Review Problem List Initiated/Reviewed/Updated: Yes - My Orders Last 24 Hours: My Active Orders 11/04/17 05:11 ALANINE AMINOTRANSFERASE,ALT [CHEM] AM ASPARTATE AMNIOTRANSFERASE,AST [CHEM] AM CRP [C-REACTIVE PROTEIN] [CHEM] AM SEDIMENTATION RATE MANUAL [HEME] AM 11/04/17 05:15 BASIC METABOLIC PANEL,BMP [CHEM] AM CBC WITH AUTO DIFF [HEME] AM - Plan Plan:: Septic Right total hip arthropalsty s/p excisional irrigation and debridement -Cx positive for MSSA -continue IV cefepime and po Rifampin - f/up with ID in 1 week - order cbc, crp, cr, esr, alt prior to ID appt cont pt/ot Osteoarthritis -Tyleron prn HTN -BP is controlled -continue current care Right shoulder rash -continue triamcinolone topical cream hyponatremia mild will follow Full code
[2017-10-30] MEDS: atorvaSTATin 10 MG Tab PO SCH (22:11)
[2017-10-31] MEDS: Rifampin 150 MG Cap PO SCH ×2 (05:58→16:57)
[2017-10-31] MEDS: Cefepime 2 GM in Sodium Chloride 0.9% 100 ML IV SCH ×3 (06:00→22:20)
[2017-10-31] MEDS: Multivitamins, Therapeutic with Minerals Tab PO SCH (09:44)
[2017-10-31] MEDS: amLODIPine 5 MG Tab PO SCH (09:46)
[2017-10-31] MEDS: Potassium Chloride 10 MEQ Tab.ER PO SCH ×2 (09:47→20:46)
[2017-10-31] MEDS: Aspirin 325 MG Tab.EC PO SCH ×2 (09:48→20:46)
[2017-10-31] MEDS: Ferrous Sulfate 325 MG Tab PO SCH (09:48)
[2017-10-31] MEDS: Losartan 50 MG Tab PO SCH (09:48)
[2017-10-31] MEDS: Clotrimazole 1% Crm 30 GM Tube TOP SCH ×2 (09:55→20:48)
[2017-10-31] MEDS: atorvaSTATin 10 MG Tab PO SCH (20:46)
[2017-10-31] MEDS: Sodium Chloride 0.9% 10 ML Syringe FLUSH PRN ×2 (22:17→22:53)
[2017-11-01] MEDS: Sodium Chloride 0.9% 10 ML Syringe FLUSH PRN ×4 (05:47→22:54)
[2017-11-01] MEDS: Cefepime 2 GM in Sodium Chloride 0.9% 100 ML IV SCH ×3 (05:47→22:14)
[2017-11-01] MEDS: Rifampin 150 MG Cap PO SCH ×2 (05:54→19:43)
[2017-11-01] MEDS: Aspirin 325 MG Tab.EC PO SCH ×2 (08:26→20:58)
[2017-11-01] MEDS: Multivitamins, Therapeutic with Minerals Tab PO SCH (08:26)
[2017-11-01] MEDS: amLODIPine 5 MG Tab PO SCH (08:27)
[2017-11-01] MEDS: Ferrous Sulfate 325 MG Tab PO SCH (08:27)
[2017-11-01] MEDS: Losartan 50 MG Tab PO SCH (08:28)
[2017-11-01] MEDS: Potassium Chloride 10 MEQ Tab.ER PO SCH ×2 (08:29→20:58)
[2017-11-01] MEDS: Clotrimazole 1% Crm 30 GM Tube TOP SCH ×2 (08:30→21:00)
[2017-11-01] MEDS: Triamcinolone Acetonide 0.1% Crm 15 GM Tube TOP PRN (08:30)
[2017-11-01] MEDS: Acetaminophen 325 MG Tab PO PRN (13:31)
[2017-11-01] MEDS: atorvaSTATin 10 MG Tab PO SCH (20:58)
[2017-11-02] MEDS: Cefepime 2 GM in Sodium Chloride 0.9% 100 ML IV SCH ×3 (05:43→22:00)
[2017-11-02] MEDS: Sodium Chloride 0.9% 10 ML Syringe FLUSH PRN ×3 (05:43→15:49)
[2017-11-02] MEDS: Rifampin 150 MG Cap PO SCH ×2 (05:45→15:03)
[2017-11-02] MEDS: Potassium Chloride 10 MEQ Tab.ER PO SCH ×2 (08:27→20:55)
[2017-11-02] MEDS: amLODIPine 5 MG Tab PO SCH (08:27)
[2017-11-02] MEDS: Losartan 50 MG Tab PO SCH (08:28)
[2017-11-02] MEDS: Ferrous Sulfate 325 MG Tab PO SCH (08:28)
[2017-11-02] MEDS: Aspirin 325 MG Tab.EC PO SCH ×2 (08:28→20:55)
[2017-11-02] MEDS: Multivitamins, Therapeutic with Minerals Tab PO SCH (08:28)
[2017-11-02] MEDS: Clotrimazole 1% Crm 30 GM Tube TOP SCH ×2 (08:29→20:56)
[2017-11-02] MEDS: Triamcinolone Acetonide 0.1% Crm 15 GM Tube TOP PRN (08:29)
[2017-11-02] MEDS: atorvaSTATin 10 MG Tab PO SCH (20:55)
[2017-11-03] MEDS: Rifampin 150 MG Cap PO SCH ×2 (06:00→16:38)
[2017-11-03] MEDS: Cefepime 2 GM in Sodium Chloride 0.9% 100 ML IV SCH ×3 (06:01→21:55)
[2017-11-03] MEDS: amLODIPine 5 MG Tab PO SCH (10:02)
[2017-11-03] MEDS: Potassium Chloride 10 MEQ Tab.ER PO SCH ×2 (10:03→20:55)
[2017-11-03] MEDS: Losartan 50 MG Tab PO SCH (10:03)
[2017-11-03] MEDS: Aspirin 325 MG Tab.EC PO SCH ×2 (10:03→20:55)
[2017-11-03] MEDS: Multivitamins, Therapeutic with Minerals Tab PO SCH (10:04)
[2017-11-03] MEDS: Clotrimazole 1% Crm 30 GM Tube TOP SCH ×2 (10:05→20:58)
[2017-11-03] MEDS: Ferrous Sulfate 325 MG Tab PO SCH (10:05)
[2017-11-03] MEDS: Acetaminophen 325 MG Tab PO PRN (17:52)
[2017-11-03] MEDS: atorvaSTATin 10 MG Tab PO SCH (20:55)
[2017-11-04] MEDS: Sodium Chloride 0.9% 10 ML Syringe FLUSH PRN ×2 (05:47→14:14)
[2017-11-04] MEDS: Rifampin 150 MG Cap PO SCH ×2 (05:47→16:36)
[2017-11-04] MEDS: Cefepime 2 GM in Sodium Chloride 0.9% 100 ML IV SCH ×3 (05:47→21:10)
[2017-11-04 07:03] LABS: ANION GAP 12.1; CHLORIDE,CL 102 mmol/L (101-111); SODIUM,NA 136 mmol/L (135-145)
[2017-11-04] MEDS: Ferrous Sulfate 325 MG Tab PO SCH (08:57)
[2017-11-04] MEDS: Potassium Chloride 10 MEQ Tab.ER PO SCH ×2 (08:57→21:11)
[2017-11-04] MEDS: Losartan 50 MG Tab PO SCH (08:58)
[2017-11-04] MEDS: Aspirin 325 MG Tab.EC PO SCH ×2 (08:58→21:12)
[2017-11-04] MEDS: Multivitamins, Therapeutic with Minerals Tab PO SCH (08:58)
[2017-11-04] MEDS: amLODIPine 5 MG Tab PO SCH (08:58)
[2017-11-04] MEDS: Clotrimazole 1% Crm 30 GM Tube TOP SCH ×2 (09:01→21:13)
[2017-11-04] MEDS: Acetaminophen 325 MG Tab PO PRN (13:32)
[2017-11-04] MEDS: atorvaSTATin 10 MG Tab PO SCH (21:11)
[2017-11-05] MEDS: Cefepime 2 GM in Sodium Chloride 0.9% 100 ML IV SCH ×2 (05:32→16:16)
[2017-11-05] MEDS: Rifampin 150 MG Cap PO SCH ×2 (05:57→16:20)
[2017-11-05] MEDS: Losartan 50 MG Tab PO SCH (08:25)
[2017-11-05] MEDS: amLODIPine 5 MG Tab PO SCH (08:26)
[2017-11-05] MEDS: Potassium Chloride 10 MEQ Tab.ER PO SCH ×2 (08:26→21:00)
[2017-11-05] MEDS: Multivitamins, Therapeutic with Minerals Tab PO SCH (08:26)
[2017-11-05] MEDS: Ferrous Sulfate 325 MG Tab PO SCH (08:26)
[2017-11-05] MEDS: Aspirin 325 MG Tab.EC PO SCH ×2 (08:26→21:08)
[2017-11-05] MEDS: Clotrimazole 1% Crm 30 GM Tube TOP SCH ×2 (08:28→21:49)
[2017-11-05] MEDS: atorvaSTATin 10 MG Tab PO SCH (21:14)
[2017-11-06] MEDS: Rifampin 150 MG Cap PO SCH ×2 (05:37→15:24)
[2017-11-06] MEDS: Losartan 50 MG Tab PO SCH (08:32)
[2017-11-06] MEDS: Aspirin 325 MG Tab.EC PO SCH ×2 (08:32→20:21)
[2017-11-06] MEDS: Ferrous Sulfate 325 MG Tab PO SCH (08:32)
[2017-11-06] MEDS: amLODIPine 5 MG Tab PO SCH (08:32)
[2017-11-06] MEDS: Multivitamins, Therapeutic with Minerals Tab PO SCH (08:32)
[2017-11-06] MEDS: Potassium Chloride 10 MEQ Tab.ER PO SCH ×2 (08:32→20:21)
[2017-11-06] MEDS: Sodium Chloride 0.9% 10 ML Syringe FLUSH SCH ×2 (08:33→20:22)
[2017-11-06] MEDS: Clotrimazole 1% Crm 30 GM Tube TOP SCH ×2 (08:33→20:21)
[2017-11-06] MEDS: [UNRECOGNIZED DRUG - REMARK] PO SCH ×2 (15:24→21:01)
[2017-11-06] MEDS: atorvaSTATin 10 MG Tab PO SCH (20:21)
[2017-11-07] MEDS: Rifampin 150 MG Cap PO SCH ×2 (05:49→16:20)
[2017-11-07] MEDS: Losartan 50 MG Tab PO SCH (08:53)
[2017-11-07] MEDS: Ferrous Sulfate 325 MG Tab PO SCH (08:54)
[2017-11-07] MEDS: Aspirin 325 MG Tab.EC PO SCH ×2 (08:54→20:29)
[2017-11-07] MEDS: Potassium Chloride 10 MEQ Tab.ER PO SCH ×2 (08:55→20:28)
[2017-11-07] MEDS: Clotrimazole 1% Crm 30 GM Tube TOP SCH ×2 (08:55→20:30)
[2017-11-07] MEDS: amLODIPine 5 MG Tab PO SCH (08:56)
[2017-11-07] MEDS: Sodium Chloride 0.9% 10 ML Syringe FLUSH SCH ×2 (08:57→20:31)
[2017-11-07] MEDS: Multivitamins, Therapeutic with Minerals Tab PO SCH (08:57)
[2017-11-07] MEDS: [UNRECOGNIZED DRUG - REMARK] PO SCH ×2 (09:58→17:57)
[2017-11-07] MEDS: atorvaSTATin 10 MG Tab PO SCH (20:28)
[2017-11-08] MEDS: Rifampin 150 MG Cap PO SCH ×2 (06:14→16:10)
[2017-11-08] MEDS: Potassium Chloride 10 MEQ Tab.ER PO SCH ×2 (08:12→21:41)
[2017-11-08] MEDS: [UNRECOGNIZED DRUG - REMARK] PO SCH ×2 (08:13→17:11)
[2017-11-08] MEDS: Ferrous Sulfate 325 MG Tab PO SCH (09:10)
[2017-11-08] MEDS: Losartan 50 MG Tab PO SCH (09:10)
[2017-11-08] MEDS: Aspirin 325 MG Tab.EC PO SCH ×2 (09:10→21:41)
[2017-11-08] MEDS: Multivitamins, Therapeutic with Minerals Tab PO SCH (09:10)
[2017-11-08] MEDS: Clotrimazole 1% Crm 30 GM Tube TOP SCH (09:11)
[2017-11-08] MEDS: amLODIPine 5 MG Tab PO SCH (09:11)
[2017-11-08] MEDS: Sodium Chloride 0.9% 10 ML Syringe FLUSH SCH ×2 (09:12→21:42)
[2017-11-08] MEDS: Acetaminophen 325 MG Tab PO PRN (13:07)
[2017-11-08] MEDS: atorvaSTATin 10 MG Tab PO SCH (21:41)
[2017-11-09] MEDS: Rifampin 150 MG Cap PO SCH ×2 (05:53→16:26)
[2017-11-09] MEDS: [UNRECOGNIZED DRUG - REMARK] PO SCH ×2 (08:19→17:33)
[2017-11-09] MEDS: Potassium Chloride 10 MEQ Tab.ER PO SCH ×2 (09:12→21:01)
[2017-11-09] MEDS: Losartan 50 MG Tab PO SCH (09:12)
[2017-11-09] MEDS: Multivitamins, Therapeutic with Minerals Tab PO SCH (09:13)
[2017-11-09] MEDS: Ferrous Sulfate 325 MG Tab PO SCH (09:13)
[2017-11-09] MEDS: Aspirin 325 MG Tab.EC PO SCH ×2 (09:13→21:01)
[2017-11-09] MEDS: amLODIPine 5 MG Tab PO SCH (09:13)
[2017-11-09] MEDS: Clotrimazole 1% Crm 30 GM Tube TOP SCH (09:15)
[2017-11-09] MEDS: Sodium Chloride 0.9% 10 ML Syringe FLUSH SCH ×2 (09:17→21:02)
[2017-11-09] MEDS: atorvaSTATin 10 MG Tab PO SCH (21:01)
[2017-11-10] MEDS: Rifampin 150 MG Cap PO SCH ×2 (06:02→16:23)
[2017-11-10] MEDS: [UNRECOGNIZED DRUG - REMARK] PO SCH ×2 (08:12→17:37)
[2017-11-10] MEDS: Potassium Chloride 10 MEQ Tab.ER PO SCH ×2 (09:36→20:53)
[2017-11-10] MEDS: Losartan 50 MG Tab PO SCH (09:36)
[2017-11-10] MEDS: Ferrous Sulfate 325 MG Tab PO SCH (09:36)
[2017-11-10] MEDS: Multivitamins, Therapeutic with Minerals Tab PO SCH (09:36)
[2017-11-10] MEDS: Aspirin 325 MG Tab.EC PO SCH ×2 (09:36→20:53)
[2017-11-10] MEDS: amLODIPine 5 MG Tab PO SCH (09:37)
[2017-11-10] MEDS: Clotrimazole 1% Crm 30 GM Tube TOP SCH (09:50)
--- NOTE | 2017-11-10 13:27 | PCM.PN ---
- General Info Date of Service: 11/10/17 Admission Dx/Problem (Free Text): Patient is 76 y/o F with PMH of HTN, OA, s/p left RADHA in the past. She underwent right RADHA on 09/04. She was admitted to [facility] on 09/19 with right septic total hip arthropalsty and underwent excisional irrigation and debridement. Cx positive for MSSA. She was admitted to swing bed to continue IV Abx. Plan is to complete 6 week course on 11/01. Subjective Update: Patient was seen and examine today. No acute event overnight. Functional Status: Reports: Pain Controlled - Review of Systems General: Reports: No Symptoms HEENT: Reports: No Symptoms Pulmonary: Reports: No Symptoms Cardiovascular: Reports: No Symptoms Gastrointestinal: Reports: No Symptoms Genitourinary: Reports: No Symptoms Musculoskeletal: Reports: No Symptoms Skin: Reports: No Symptoms Neurological: Reports: No Symptoms Psychiatric: Reports: No Symptoms - Patient Data Vitals - Most Recent: Last Vital Signs Temp 96.2 F 11/10/17 08:05 Pulse 119 H 11/10/17 08:05 Resp 20 11/10/17 08:05 BP 139/69 11/10/17 09:37 Pulse Ox 95 11/10/17 08:05 Weight - Most Recent: 196 lb 3.2 oz I&O - Last 24 Hours: Intake & Output 11/09/17 11/10/17 11/10/17 22:59 06:59 14:59 Intake Total 360 325 Balance 360 325 Med Orders - Current: Current Medications Acetaminophen (Tylenol) 650 mg PO Q6H PRN PRN Reason: Pain Last Admin: 11/08/17 13:07 Dose: 650 mg Amlodipine Besylate (Norvasc) 10 mg PO DAILY [facility] Last Admin: 11/10/17 09:37 Dose: 10 mg Aspirin (Ecotrin) 325 mg PO BID [facility] Last Admin: 11/10/17 09:36 Dose: 325 mg Atorvastatin Calcium (Lipitor) 10 mg PO BEDTIME [facility] Last Admin: 11/09/17 21:01 Dose: 10 mg Clotrimazole (Lotrimin Af 1% Crm) 0 gm TOP DAILY [facility] Last Admin: 11/10/17 09:50 Dose: 1 applic Ferrous Sulfate (Ferrous Sulfate) 325 mg PO DAILY [facility] Last Admin: 11/10/17 09:36 Dose: 325 mg Losartan Potassium (Cozaar) 50 mg PO DAILY [facility] Last Admin: 11/10/17 09:36 Dose: 50 mg Magnesium Hydroxide (Milk Of Magnesia) 30 ml PO Q12H PRN PRN Reason: Constipation Methyl Salicylate (Icy Hot Cream) 1 gm TOP Q8H PRN PRN Reason: Pain Last Admin: 10/06/17 09:06 Dose: 1 applic Morphine Sulfate (Morphine) 2 mg IVPUSH Q2H PRN PRN Reason: Pain (severe 7-10) Multivitamins/Minerals (Vitamins And Minerals) 1 tab PO DAILY [facility] Last Admin: 11/10/17 09:36 Dose: 1 tab Linezolid 600mg Tabs (Non-Form Med) 1 each PO BIDMEALS [facility] Stop: 11/12/17 18:01 Last Admin: 11/10/17 08:12 Dose: 1 each Ondansetron HCl (Zofran Odt) 8 mg PO Q8HR PRN PRN Reason: Nausea Last Admin: 11/07/17 12:24 Dose: 8 mg Oxycodone HCl (Oxycodone) 5 mg PO Q12H PRN PRN Reason: Pain Last Admin: 10/21/17 20:52 Dose: 5 mg Oxycodone/Acetaminophen (Percocet 325-5 Mg) 1 tab PO Q6H PRN PRN Reason: Pain (moderate 4-6) Polyethylene Glycol (Miralax) 17 gm PO DAILY PRN PRN Reason: Constipation Potassium Chloride (Klor-Con 10) 20 meq PO BID [facility] Last Admin: 11/10/17 09:36 Dose: 20 meq Rifampin (Rifadin) 300 mg PO 0600,1600 [facility] Last Admin: 11/10/17 06:02 Dose: 300 mg Senna/Docusate Sodium (Senna Plus) 2 tab PO DAILY PRN PRN Reason: Constipation Sodium Chloride (Saline Flush) 10 ml FLUSH ASDIRECTED PRN PRN Reason: Keep Vein Open Sodium Chloride (Saline Flush) 10 ml FLUSH BID [facility] Last Admin: 11/09/17 21:02 Dose: 10 ml Temazepam (Restoril) 15 mg PO BEDTIME PRN PRN Reason: Sleep Last Admin: 10/21/17 20:51 Dose: 15 mg Triamcinolone Acetonide (Triamcinolone Acetonide 0.1% Crm) 0 gm TOP BID PRN PRN Reason: Itching Last Admin: 11/02/17 08:29 Dose: 1 applic Discontinued Medications Acetaminophen (Tylenol) 650 mg PO DAILY PRN PRN Reason: Pain Last Admin: 10/19/17 08:43 Dose: 650 mg Alteplase, Recombinant (Cathflo Activase) 2 mg IVPUSH ONETIME ONE Stop: 10/26/17 00:31 Last Admin: 10/26/17 01:19 Dose: 2 mg Alteplase, Recombinant (Cathflo Activase) 2 mg IVPUSH ONETIME ONE Stop: 10/26/17 03:06 Last Admin: 10/26/17 03:26 Dose: 2 mg Amlodipine Besylate (Norvasc) 10 mg PO .STK-MED ONE Stop: 10/29/17 06:01 Aspirin (Ecotrin) 325 mg PO .STK-MED ONE Stop: 10/29/17 06:01 Clotrimazole (Lotrimin Af 1% Crm) 0 gm TOP BID [facility] Last Admin: 11/08/17 09:11 Dose: Not Given Ferrous Sulfate (Ferrous Sulfate) 325 mg PO .STK-MED ONE Stop: 10/29/17 06:01 Cefazolin Sodium/Dextrose 2 gm (/ Premix) 50 mls @ 100 mls/hr IV Q8HR [facility] Last Infusion: 10/07/17 06:26 Dose: Infused Cefepime HCl 2 gm/ Sodium (Chloride) 50 mls @ 100 mls/hr IV Q12H [facility] Last Admin: 10/07/17 13:19 Dose: Not Given Cefepime HCl 2 gm/ Sodium (Chloride) 100 mls @ 200 mls/hr IV Q12H [facility] Last Admin: 10/07/17 13:19 Dose: Not Given Cefepime HCl 2 gm/ Sodium (Chloride) 100 mls @ 200 mls/hr IV Q12H [facility] Last Admin: 10/08/17 16:40 Dose: Not Given Cefepime HCl 2 gm/ Sodium (Chloride) 100 mls @ 200 mls/hr IV Q8H [facility] Last Admin: 10/26/17 00:09 Dose: 200 mls/hr Cefepime HCl 2 gm/ Sodium (Chloride) 100 mls @ 200 mls/hr IV Q8H [facility] Last Admin: 10/29/17 04:24 Dose: 200 mls/hr Cefepime HCl 2 gm/ Sodium (Chloride) 100 mls @ 200 mls/hr IV Q8HR [facility] Last Admin: 11/05/17 16:16 Dose: Not Given Iopamidol (Isovue-300 (61%)) 100 ml IVPUSH ONETIME ONE Stop: 10/06/17 15:18 Last Admin: 10/06/17 15:32 Dose: 100 ml Iopamidol (Isovue-300 (61%)) 100 ml IVPUSH ONETIME ONE Stop: 10/17/17 11:46 Last Admin: 10/17/17 14:30 Dose: 100 ml Losartan Potassium (Cozaar) 50 mg PO .STK-MED ONE Stop: 10/29/17 06:01 Multivitamins/Minerals (Vitamins And Minerals) 1 tab PO .STK-MED ONE Stop: 10/29/17 06:01 Non-Formulary Medication (Ferrous Sulfate) 1 tab PO DAILY [facility] Linezolid 600mg Tabs (Non-Form Med) 1 each PO BID [facility] Stop: 11/12/17 21:01 Last Admin: 11/07/17 09:58 Dose: 1 each Oxycodone HCl (Oxycodone) 5 mg PO Q4HR [facility] Last Admin: 10/02/17 10:28 Dose: 5 mg Oxycodone HCl (Oxycodone) 5 mg PO Q12H PRN PRN Reason: Pain Oxycodone HCl (Oxycodone) 5 mg PO Q12H [facility] Last Admin: 10/13/17 08:02 Dose: 5 mg Oxycodone/Acetaminophen (Percocet 325-5 Mg) 1 tab PO Q4H PRN PRN Reason: Pain (moderate 4-6) Potassium Chloride (Klor-Con 10) 20 meq PO .STK-MED ONE Stop: 10/29/17 06:01 Rifampin (Rifadin) 300 mg PO BIDAC [facility] Last Admin: 10/25/17 05:48 Dose: 300 mg Senna/Docusate Sodium (Senna Plus) 2 tab PO DAILY [facility] Last Admin: 10/06/17 09:21 Dose: Not Given Sodium Chloride (Saline Flush) 10 ml FLUSH ASDIRECTED PRN PRN Reason: IV Use Last Admin: 11/04/17 14:14 Dose: 10 ml - Exam Quality Assessment: DVT Prophylaxis General: Alert, Oriented HEENT: Pupils Equal, Pupils Reactive, EOMI, Mucous Membr. Moist/[place] Neck: Supple Lungs: Clear to Auscultation, Normal Respiratory Effort Cardiovascular: Regular Rate, Regular Rhythm GI/Abdominal Exam: Normal Bowel Sounds, Soft, Non-Tender, No Organomegaly, No Distention, No Abnormal Bruit, No Mass, Pelvis Stable (Female) Exam: Normal External Exam, Normal Speculum Exam, Normal Bimanual Exam Back Exam: Normal Inspection, Full Range of Motion Extremities: Normal Inspection, Normal Range of Motion, Non-Tender, No Pedal Edema, Normal Capillary Refill Skin: Warm, Dry, Intact Wound/Incisions: Healing Well Neurological: No New Focal Deficit Psy/Mental Status: Alert, Normal Affect, Normal Mood - Problem List Review Problem List Initiated/Reviewed/Updated: Yes - My Orders Last 24 Hours: My Active Orders 11/11/17 06:00 ALANINE AMINOTRANSFERASE,ALT [CHEM] Routine CBC WITH AUTO DIFF [HEME] Routine CREATININE W/GFR [CHEM] Routine CRP [C-REACTIVE PROTEIN] [CHEM] Routine ESR [SEDIMENTATION RATE MANUAL] [HEME] Routine - Plan Plan:: Septic Right total hip arthropalsty s/p excisional irrigation and debridement -Cx positive for MSSA -continue Linezolid and po Rifampin - f/up with ID in 1 week - order cbc, crp, cr, esr, alt prior to ID appt cont pt/ot Osteoarthritis -Tyleron prn HTN -BP is controlled -continue current care Right shoulder rash -continue triamcinolone topical cream Full code
[2017-11-10] MEDS: Acetaminophen 325 MG Tab PO PRN (13:29)
[2017-11-10] MEDS: Sodium Chloride 0.9% 10 ML Syringe FLUSH SCH ×2 (13:30→20:53)
[2017-11-10] MEDS: atorvaSTATin 10 MG Tab PO SCH (20:53)
[2017-11-11] MEDS: Rifampin 150 MG Cap PO SCH ×2 (05:55→16:15)
[2017-11-11 06:51] LABS: ANION GAP 10.6; CHLORIDE,CL 98 mmol/L (101-111); SODIUM,NA 133 mmol/L (135-145)
[2017-11-11] MEDS: [UNRECOGNIZED DRUG - REMARK] PO SCH ×2 (08:10→17:25)
[2017-11-11] MEDS: amLODIPine 5 MG Tab PO SCH (09:05)
[2017-11-11] MEDS: Ferrous Sulfate 325 MG Tab PO SCH (09:05)
[2017-11-11] MEDS: Potassium Chloride 10 MEQ Tab.ER PO SCH ×2 (09:06→20:25)
[2017-11-11] MEDS: Losartan 50 MG Tab PO SCH (09:08)
[2017-11-11] MEDS: Clotrimazole 1% Crm 30 GM Tube TOP SCH (09:09)
[2017-11-11] MEDS: Aspirin 325 MG Tab.EC PO SCH ×2 (09:09→20:26)
[2017-11-11] MEDS: Multivitamins, Therapeutic with Minerals Tab PO SCH (09:10)
[2017-11-11] MEDS: Sodium Chloride 0.9% 10 ML Syringe FLUSH SCH ×2 (09:11→20:26)
[2017-11-11] MEDS: Acetaminophen 325 MG Tab PO PRN (13:41)
[2017-11-11] MEDS: atorvaSTATin 10 MG Tab PO SCH (20:25)
[2017-11-12] MEDS: Rifampin 150 MG Cap PO SCH ×2 (05:54→15:51)
[2017-11-12 08:00] VITALS: BP 143/77
[2017-11-12] MEDS: [UNRECOGNIZED DRUG - REMARK] PO SCH ×2 (08:13→17:23)
[2017-11-12] MEDS: Potassium Chloride 10 MEQ Tab.ER PO SCH (08:13)
[2017-11-12] MEDS: Ferrous Sulfate 325 MG Tab PO SCH (09:51)
[2017-11-12] MEDS: amLODIPine 5 MG Tab PO SCH (09:52)
[2017-11-12] MEDS: Aspirin 325 MG Tab.EC PO SCH (09:52)
[2017-11-12] MEDS: Losartan 50 MG Tab PO SCH (09:52)
[2017-11-12] MEDS: Multivitamins, Therapeutic with Minerals Tab PO SCH (09:52)
[2017-11-12] MEDS: Sodium Chloride 0.9% 10 ML Syringe FLUSH SCH (09:53)
[2017-11-12] MEDS: Clotrimazole 1% Crm 30 GM Tube TOP SCH (09:54)
--- NOTE | 2017-11-12 12:50 | PCM.DCSUM1 ---
Discharge Summary - Hospital Course HPI Initial Comments: Patient is 76 y/o F with PMH of HTN, OA, s/p left RADHA in the past. She underwent right RADHA on 09/04. She was admitted to [facility] on 09/19 with right septic total hip arthropalsty and underwent excisional irrigation and debridement. Cx positive for MSSA. She was admitted to swing bed to continue IV Abx. Plan is to complete 6 week course on 11/01. Patient was seen on follow up with ID today and plan is to discharge patient home on cefadroxil 500 mg bid. She will also continue with Rifampin. She will follow up with ID in 2 weeks with follow up labs. Diagnosis: Stroke: No - Discharge Data Discharge Date: 11/12/17 Discharge Disposition: Home, Self-Care 01 Condition: Good - Patient Summary/Data Consults: Consultations 09/25/17 15:15 OT Evaluation and Treatment [CONS] Routine PT Evaluation and Treatment [CONS] Routine - Patient Instructions Diet: Heart Healthy Diet Activity: As Tolerated Notify Provider of: Fever, Increased Pain, Swelling and Redness - Discharge Plan Home Medications: Home Meds Aspirin [Halfprin] 325 mg PO BID 07/08/14 [History] Losartan [Cozaar] 50 mg PO DAILY 07/08/14 [History] Multivitamin with Minerals [Multivitamins with Minerals] 1 tab PO DAILY [History] amLODIPine Besylate [Amlodipine Besylate] 10 mg PO DAILY 07/08/14 [History] Acetaminophen [Tylenol] 650 mg PO DAILY PRN 09/25/17 [History] Ferrous Sulfate [Slow Fe] 1 tab PO DAILY 09/25/17 [History] Miconazole [Miconazole 2% Crm] 1 applic TOP BID 09/25/17 [History] Ondansetron [Zofran ODT] 8 mg PO Q8HR PRN 09/25/17 [History] Potassium Chloride [Klor-Con 10] 20 meq PO BID 09/25/17 [History] Rifampin [Rifadin] 300 mg PO BID 09/25/17 [History] Sennosides/Docusate Sodium [Senna-S] 2 tab PO DAILY 09/25/17 [History] atorvaSTATin [Lipitor] 10 mg PO BEDTIME 09/25/17 [History] oxyCODONE 5 mg PO Q4HR 09/25/17 [History] - Discharge Summary/Plan Comment DC Time >30 min.: Yes - General Info Subjective Update: Patient is 76 y/o F with PMH of HTN, OA, s/p left RADHA in the past. She underwent right RADHA on 09/04. She was admitted to [facility] on 09/19 with right septic total hip arthropalsty and underwent excisional irrigation and debridement. Cx positive for MSSA. She was admitted to swing bed to continue IV Abx. Plan is to complete 6 week course on 11/01. Patient was seen on follow up with ID today and plan is to discharge patient home on cefadroxil 500 mg bid. She will also continue with Rifampin. She will follow up with ID in 2 weeks with follow up labs. Functional Status: Reports: Pain Controlled - Review of Systems General: Reports: No Symptoms HEENT: Reports: No Symptoms Pulmonary: Reports: No Symptoms Cardiovascular: Reports: No Symptoms Gastrointestinal: Reports: No Symptoms Genitourinary: Reports: No Symptoms Musculoskeletal: Reports: No Symptoms Skin: Reports: No Symptoms Neurological: Reports: No Symptoms Psychiatric: Reports: No Symptoms - Patient Data Vitals - Most Recent: Last Vital Signs Temp 96.9 F 11/12/17 07:58 Pulse 105 H 11/12/17 07:58 Resp 20 11/12/17 07:58 BP 143/77 H 11/12/17 07:58 Pulse Ox 94 L 11/12/17 07:58 Weight - Most Recent: 196 lb 3.2 oz I&O - Last 24 hours: Intake & Output 11/11/17 11/12/17 11/12/17 22:59 06:59 14:59 Intake Total 450 550 360 Balance 450 550 360 Lab Results - Last 24 hrs: Laboratory Results - last 24 hr 11/04/17 Range/Units 06:30 c-ANCA Antibody <1:20 (Neg:<1:20) titer Proteinase 3 (PR3) Ab <3.5 (0.0-3.5) U/mL Atypical p-ANCA <1:20 (Neg:<1:20) titer p-ANCA Antibody <1:20 (Neg:<1:20) titer Anti-Myeloperoxidase <9.0 (0.0-9.0) U/mL Med Orders - Current: Current Medications Acetaminophen (Tylenol) 650 mg PO Q6H PRN PRN Reason: Pain Last Admin: 11/11/17 13:41 Dose: 650 mg Amlodipine Besylate (Norvasc) 10 mg PO DAILY [facility] Last Admin: 11/12/17 09:52 Dose: 10 mg Aspirin (Ecotrin) 325 mg PO BID [facility] Last Admin: 11/12/17 09:52 Dose: 325 mg Atorvastatin Calcium (Lipitor) 10 mg PO BEDTIME [facility] Last Admin: 11/11/17 20:25 Dose: 10 mg Clotrimazole (Lotrimin Af 1% Crm) 0 gm TOP DAILY [facility] Last Admin: 11/12/17 09:54 Dose: 1 applic Ferrous Sulfate (Ferrous Sulfate) 325 mg PO DAILY [facility] Last Admin: 11/12/17 09:51 Dose: 325 mg Losartan Potassium (Cozaar) 50 mg PO DAILY [facility] Last Admin: 11/12/17 09:52 Dose: 50 mg Magnesium Hydroxide (Milk Of Magnesia) 30 ml PO Q12H PRN PRN Reason: Constipation Methyl Salicylate (Icy Hot Cream) 1 gm TOP Q8H PRN PRN Reason: Pain Last Admin: 10/06/17 09:06 Dose: 1 applic Morphine Sulfate (Morphine) 2 mg IVPUSH Q2H PRN PRN Reason: Pain (severe 7-10) Multivitamins/Minerals (Vitamins And Minerals) 1 tab PO DAILY [facility] Last Admin: 11/12/17 09:52 Dose: 1 tab Linezolid 600mg Tabs (Non-Form Med) 1 each PO BIDMEALS [facility] Stop: 11/12/17 18:01 Last Admin: 11/12/17 08:13 Dose: 1 each Ondansetron HCl (Zofran Odt) 8 mg PO Q8HR PRN PRN Reason: Nausea Last Admin: 11/07/17 12:24 Dose: 8 mg Oxycodone HCl (Oxycodone) 5 mg PO Q12H PRN PRN Reason: Pain Last Admin: 10/21/17 20:52 Dose: 5 mg Oxycodone/Acetaminophen (Percocet 325-5 Mg) 1 tab PO Q6H PRN PRN Reason: Pain (moderate 4-6) Polyethylene Glycol (Miralax) 17 gm PO DAILY PRN PRN Reason: Constipation Potassium Chloride (Klor-Con 10) 20 meq PO BID [facility] Last Admin: 11/12/17 08:13 Dose: 20 meq Rifampin (Rifadin) 300 mg PO 0600,1600 [facility] Last Admin: 11/12/17 05:54 Dose: 300 mg Senna/Docusate Sodium (Senna Plus) 2 tab PO DAILY PRN PRN Reason: Constipation Sodium Chloride (Saline Flush) 10 ml FLUSH ASDIRECTED PRN PRN Reason: Keep Vein Open Sodium Chloride (Saline Flush) 10 ml FLUSH BID [facility] Last Admin: 11/12/17 09:53 Dose: 10 ml Temazepam (Restoril) 15 mg PO BEDTIME PRN PRN Reason: Sleep Last Admin: 10/21/17 20:51 Dose: 15 mg Triamcinolone Acetonide (Triamcinolone Acetonide 0.1% Crm) 0 gm TOP BID PRN PRN Reason: Itching Last Admin: 11/02/17 08:29 Dose: 1 applic Discontinued Medications Acetaminophen (Tylenol) 650 mg PO DAILY PRN PRN Reason: Pain Last Admin: 10/19/17 08:43 Dose: 650 mg Alteplase, Recombinant (Cathflo Activase) 2 mg IVPUSH ONETIME ONE Stop: 10/26/17 00:31 Last Admin: 10/26/17 01:19 Dose: 2 mg Alteplase, Recombinant (Cathflo Activase) 2 mg IVPUSH ONETIME ONE Stop: 10/26/17 03:06 Last Admin: 10/26/17 03:26 Dose: 2 mg Amlodipine Besylate (Norvasc) 10 mg PO .STK-MED ONE Stop: 10/29/17 06:01 Aspirin (Ecotrin) 325 mg PO .STK-MED ONE Stop: 10/29/17 06:01 Clotrimazole (Lotrimin Af 1% Crm) 0 gm TOP BID [facility] Last Admin: 11/08/17 09:11 Dose: Not Given Ferrous Sulfate (Ferrous Sulfate) 325 mg PO .STK-MED ONE Stop: 10/29/17 06:01 Cefazolin Sodium/Dextrose 2 gm (/ Premix) 50 mls @ 100 mls/hr IV Q8HR [facility] Last Infusion: 10/07/17 06:26 Dose: Infused Cefepime HCl 2 gm/ Sodium (Chloride) 50 mls @ 100 mls/hr IV Q12H [facility] Last Admin: 10/07/17 13:19 Dose: Not Given Cefepime HCl 2 gm/ Sodium (Chloride) 100 mls @ 200 mls/hr IV Q12H [facility] Last Admin: 10/07/17 13:19 Dose: Not Given Cefepime HCl 2 gm/ Sodium (Chloride) 100 mls @ 200 mls/hr IV Q12H [facility] Last Admin: 10/08/17 16:40 Dose: Not Given Cefepime HCl 2 gm/ Sodium (Chloride) 100 mls @ 200 mls/hr IV Q8H [facility] Last Admin: 10/26/17 00:09 Dose: 200 mls/hr Cefepime HCl 2 gm/ Sodium (Chloride) 100 mls @ 200 mls/hr IV Q8H [facility] Last Admin: 10/29/17 04:24 Dose: 200 mls/hr Cefepime HCl 2 gm/ Sodium (Chloride) 100 mls @ 200 mls/hr IV Q8HR [facility] Last Admin: 11/05/17 16:16 Dose: Not Given Iopamidol (Isovue-300 (61%)) 100 ml IVPUSH ONETIME ONE Stop: 10/06/17 15:18 Last Admin: 10/06/17 15:32 Dose: 100 ml Iopamidol (Isovue-300 (61%)) 100 ml IVPUSH ONETIME ONE Stop: 10/17/17 11:46 Last Admin: 10/17/17 14:30 Dose: 100 ml Losartan Potassium (Cozaar) 50 mg PO .STK-MED ONE Stop: 10/29/17 06:01 Multivitamins/Minerals (Vitamins And Minerals) 1 tab PO .STK-MED ONE Stop: 10/29/17 06:01 Non-Formulary Medication (Ferrous Sulfate) 1 tab PO DAILY [facility] Linezolid 600mg Tabs (Non-Form Med) 1 each PO BID [facility] Stop: 11/12/17 21:01 Last Admin: 11/07/17 09:58 Dose: 1 each Oxycodone HCl (Oxycodone) 5 mg PO Q4HR [facility] Last Admin: 10/02/17 10:28 Dose: 5 mg Oxycodone HCl (Oxycodone) 5 mg PO Q12H PRN PRN Reason: Pain Oxycodone HCl (Oxycodone) 5 mg PO Q12H [facility] Last Admin: 10/13/17 08:02 Dose: 5 mg Oxycodone/Acetaminophen (Percocet 325-5 Mg) 1 tab PO Q4H PRN PRN Reason: Pain (moderate 4-6) Potassium Chloride (Klor-Con 10) 20 meq PO .STK-MED ONE Stop: 10/29/17 06:01 Rifampin (Rifadin) 300 mg PO BIDAC [facility] Last Admin: 10/25/17 05:48 Dose: 300 mg Senna/Docusate Sodium (Senna Plus) 2 tab PO DAILY [facility] Last Admin: 10/06/17 09:21 Dose: Not Given Sodium Chloride (Saline Flush) 10 ml FLUSH ASDIRECTED PRN PRN Reason: IV Use Last Admin: 11/04/17 14:14 Dose: 10 ml - Exam Quality Assessment: Reports: DVT Prophylaxis General: Reports: Alert, Oriented HEENT: Reports: Pupils Equal, Pupils Reactive, EOMI, Mucous Membr. Moist/[place] Neck: Reports: Supple Lungs: Reports: Clear to Auscultation, Normal Respiratory Effort Cardiovascular: Reports: Regular Rate, Regular Rhythm GI/Abdominal Exam: Normal Bowel Sounds, Soft, Non-Tender, No Organomegaly, No Distention, No Abnormal Bruit, No Mass, Pelvis Stable (Female) Exam: Normal External Exam, Normal Speculum Exam, Normal Bimanual Exam Rectal (Female) Exam: Normal Exam, Normal Rectal Tone Back Exam: Reports: Normal Inspection, Full Range of Motion Extremities: Normal Inspection, Normal Range of Motion, Non-Tender, No Pedal Edema, Normal Capillary Refill Skin: Reports: Warm, Dry, Intact Wound/Incisions: Reports: Healing Well Neurological: Reports: No New Focal Deficit Psy/Mental Status: Reports: Alert, Normal Affect, Normal Mood
== END 2017-11-12 17:05 | disposition home or self-care (01) | DRG 560 ==
LOC: UNDOADMIN 14:13 → DL.MS 14:13
PROVIDERS: ADMIT Internal Medicine; ATTEND Internal Medicine
DX: T84.51XA Infection and inflammatory reaction due to internal right hip prosthesis, initial encounter (principal); E87.1 Hypo-osmolality and hyponatremia; Y83.8 Other surgical procedures as the cause of abnormal reaction of the patient, or of later complication, without mention of misadventure at the time of the procedure; M19.90 Unspecified osteoarthritis, unspecified site; I10 Essential (primary) hypertension; B95.61 Methicillin susceptible Staphylococcus aureus infection as the cause of diseases classified elsewhere; Z96.641 Presence of right artificial hip joint; R21 Rash and other nonspecific skin eruption; Z88.8 Allergy status to other drugs, medicaments and biological substances; Z79.899 Other long term (current) drug therapy
CPT/HCPCS: 36415; 73701-RT; 76999; 80048; 82565; 82962; 83520; 84155; 84165; 84450; 84460; 85025; 85027; 85651; 86140; 86256; 87070; 87077; 87186; 87205; 97110-GO; 97110-GP; 97116-GP; 97162-GP; 97164-GP; 97165-GO; 97168-GO; 97530-GO; A9270-GY; J0690; J0692; J2997; J7050; Q9967

== ENCOUNTER 2023-09-26 15:51 | Emergency (ER) | payer MEDICARE, OTHER ==
[2023-09-26 17:30] VITALS: BP 108/58; PULSE 83
[2023-09-26] MEDS: Ketorolac 30 MG/ML SDV IM ONE (18:10)
== END 2023-09-26 18:27 | disposition home or self-care (01) ==
LOC: DL.ED 15:51
DX: R22.31 Localized swelling, mass and lump, right upper limb (principal); I10 Essential (primary) hypertension; E78.00 Pure hypercholesterolemia, unspecified; M19.90 Unspecified osteoarthritis, unspecified site; Z79.82 Long term (current) use of aspirin; Z79.899 Other long term (current) drug therapy; Z88.8 Allergy status to other drugs, medicaments and biological substances
CPT/HCPCS: 29125; 73110-RT; 76882; 96372; 99282; 99284-25; J1885